=== PATIENT | female | born 1985 | race American Indian/Alaskan Native ===

== ENCOUNTER 2019-07-12 11:08 | Emergency (ER) | payer OTHER, MEDICAID ==
[2019-07-12 11:39] VITALS: BP 173/96
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
[2019-07-12] MEDS ORDERED: IBUPROFEN PO ONE (12:03)
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
== END 2019-07-12 14:32 | disposition home or self-care (01) ==
LOC: ED 11:08
DX: S39.012A Strain of muscle, fascia and tendon of lower back, initial encounter (principal); S16.1XXA Strain of muscle, fascia and tendon at neck level, initial encounter; M94.0 Chondrocostal junction syndrome [Tietze]; E66.01 Morbid (severe) obesity due to excess calories; Z68.1 Body mass index [BMI] 19.9 or less, adult; I10 Essential (primary) hypertension; E11.9 Type 2 diabetes mellitus without complications; F17.200 Nicotine dependence, unspecified, uncomplicated; Z79.899 Other long term (current) drug therapy; Z98.890 Other specified postprocedural states; V89.2XXA Person injured in unspecified motor-vehicle accident, traffic, initial encounter; Y93.89 Activity, other specified; Y92.410 Unspecified street and highway as the place of occurrence of the external cause; Y99.8 Other external cause status
CPT/HCPCS: 71046

== ENCOUNTER 2020-07-23 05:57 | Inpatient (IN) | payer MEDICAID ==
--- NOTE | 2020-07-21 13:39 | History and Physical Report ---
History of Present Illness Date of examination: 07/23/20 Chief complaint: scheduled section History of present illness: Pt is a 34 year old -[place] BETZY 08/06/20 at 38w0d with a h/o chronic hypertension on labetalol 300 mg daily and a h/o one prior who presents for repeat section. She reports good movement, and denies vaginal bleeding or leakage of fluid. She has had care at [facility] since 12 wks complicated by morbid obesity, chronic hypertension, gestational diabetes, depression, abnormal quad screen with increased risk for trisomy 21, cell free DNA normal, genital herpes on suppression, h/o preeclampsia, previous x 1, rubella equivocal status. She is GBS positive. 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 Family/Genetic History: diabetes, heart disease Social history: no significant social history - Obstetrical History Expected Date of Delivery: 08/06/20 Actual Gestation: 37 Week(s) 5 Day(s) : 3 Para: 1 Hx # Term Pregnancies: 1 Number of Pregnancies: 0 Spontaneous Abortions: 1 Induced : 0 Number of Living Children: 1 Medications and Allergies Allergies Allergy/AdvReac Type Severity Reaction Status Date / Time No Known Allergies Allergy Verified 07/12/19 11:09 Home Medications Medication Instructions Recorded Confirmed Last Taken Type Labetalol HCl 2 tab PO BID 10/21/15 10/21/15 Unknown History Labetalol HCl 200 mg PO BID 10/21/15 10/21/15 10/20/15 08:00 History Pnv,Calcium 72/Iron/Folic Acid 1 tab PO DAILY 10/21/15 10/21/15 10/20/15 08:00 History [Pnv Plus Multivit Tab] Ibuprofen [Motrin] 800 mg PO Q8HR PRN #60 tablet 10/23/15 Unknown Rx Oxycodone HCl/Acetaminophen 1 each PO Q6HR PRN #45 tablet 10/23/15 Unknown Rx [Percocet 10/325 mg] labetaloL [Labetalol 200mg TAB] 400 mg PO BID #60 tablet 10/23/15 Unknown Rx Ibuprofen [Motrin 800 MG tab] 800 mg PO Q8HR PRN #20 tablet 07/12/19 Unknown Rx methOCARBAMOL [Robaxin TAB] 500 mg PO BID PRN #15 tab 07/12/19 Unknown Rx Clindamycin [Clindamycin CAP] 300 mg PO Q6HR #80 capsule 10/17/19 Unknown Rx Ibuprofen [Motrin] 800 mg PO Q8HR PRN #30 tablet 10/17/19 Unknown Rx Lidocaine Viscous 2% 10 ml PO Q6H PRN #120 ml 10/17/19 Unknown Rx Ondansetron [Zofran Odt] 4 mg PO Q6HR PRN #20 tab.rapdis 10/17/19 Unknown Rx Prednisone [predniSONE 10 mg 10 mg PO .TAPER #21 tab.ds.pk 10/17/19 Unknown Rx (6-Day Pack, 21 Tabs)] Active Meds: Active Medications Citric Acid/Sodium Citrate (Bicitra) 30 ml PO ONCE ONE Stop: 07/23/20 05:01 Famotidine (Pepcid) 20 mg IV ONCE ONE Stop: 07/23/20 05:01 Lactated Ringer's (Lactated Ringers) 1,000 mls @ 2,250 mls/hr IV PREOP BARRY Stop: 07/24/20 05:27 Oxytocin/Sodium Chloride (Pitocin/Ns 20 Unit/1000ml Drip) 20 units in 1,000 mls @ 0 mls/hr IV DIRECT BARRY Cefazolin Sodium 3 gm/ Sodium (Chloride) 100 mls @ 100 mls/30 min IV PREOP NR; Protocol Metoclopramide HCl (Reglan) 10 mg IV ONCE ONE Stop: 07/23/20 05:01 Review of Systems All systems: negative - Physical Exam Breasts: Positive: deferred Abdomen: Positive: soft (obese, gravid ) Uterus: Positive: enlarged (gravid ) Extremities: Positive: edema (1+) - Obstetrical FHR: auscultation normal Uterine Contraction Monitor Mode: External Uterine Contraction Pattern: Irregular Uterine Tone Measurement Phase: Resting Results All other labs normal. Assessment and Plan A: IUP at 38w0d Chronic Hypertension on Labetalol 300 mg BID Previous x 1 Gestational Diabetes Depression Abnormal quad screen with increased risk of trisomy 21 with normal cell free DNA Genital Herpes without lesion or prodrome H/o preeclampsia Rubella Equivocal Status GBS positive P: Proceed with repeat section and other indicated procedures
[~2020-07-23 05:57] MED LIST: BICITRA ORAL LIQD 30ML PO NR; FAMOTIDINE 20 MG/2 ML INJ IV NR; METOCLOPRAMIDE 10 MG/2 ML INJ IV NR; OXYTOCIN 20 UNIT/1000ML DRIP 20 UNITS/1,000 ML BAG IV SCH
[2020-07-23] MEDS: LACTATED RINGERS 1,000 ML IV SCH ×2 (06:28→07:23)
--- NOTE | 2020-07-23 06:39 | Anesthesia Consultation ---
Anesthesia Consult and Med Hx Date of service: 07/23/20 - Airway Anesthetic Teeth Evaluation: Good ROM Head & Neck: Adequate Mental/Hyoid Distance: Adequate Mallampati Class: Class III Intubation Access Assessment: Possibly Difficult - Pulmonary Exam CTA: Yes - Cardiac Exam Cardiac Exam: RRR - Pre-Operative Health Status ASA Pre-Surgery Classification: ASA3 Proposed Anesthetic Plan: Epidural - Pulmonary Hx Asthma: No COPD: No Hx Pneumonia: No - Cardiovascular System Hx Hypertension: Yes (CHTN @19 Y/O) - Central Nervous System Hx Seizures: No Hx Psychiatric Problems: Yes (DEPRESSION/HALLUCINATIONS) - Endocrine Hx Renal Disease: No Hx End Stage Renal Disease: No Hx Non-Insulin Dependent Diabetes: Yes Hx Hypothyroidism: No Hx Hyperthyroidism: No - Hematic Hx Anemia: No Hx Sickle Cell Disease: No - Other Systems Hx Alcohol Use: No Hx Obesity: Yes (Superobese BMI 59.7)
--- NOTE | 2020-07-23 06:39 | Anesthesia Day of Surgery ---
Anesthesia Day of Surgery - Day of Surgery Patient Examined: Yes Patient H&P Reviewed: Yes Patient is NPO: Yes
[2020-07-23 06:43] LABS: Basophils % (Auto) 0.6 % (0.0-1.8); Eosinophils # (Auto) 0.1 K/mm3 (0.0-0.4); Eosinophils % (Auto) 1.9 % (0.0-4.3); Hemoglobin 11.8 gm/dl (10.1-14.3); Lymphocytes # (Auto) 1.5 K/mm3 (1.2-5.4); Lymphocytes % (Auto) 28.1 % (13.4-35.0); Mean Corpuscular HGB Conc 34 % (30-34); Mean Corpuscular Volume 91 fl (79-97); Monocytes # (Auto) 0.6 K/mm3 (0.0-0.8); Monocytes % (Auto) 10.7 % (0.0-7.3); Platelet Count 328 K/mm3 (140-440); Red Blood Count 3.84 M/mm3 (3.65-5.03); Red Cell Distribution Width 13.7 % (13.2-15.2)
[2020-07-23 07:05] LABS: Glucose,Fasting 100 mg/dL (65-100); Uric Acid 5.7 mg/dL (3.5-7.6)
[2020-07-23] MEDS ORDERED: ceFAZolin/STERILE WATER 2 GM/20 ML SYRINGE IV ONE (07:50)
[2020-07-23] MEDS ORDERED: SODIUM CHLORIDE 0.9% IRR 1,500 ML BOTTLE IR ONE (08:00)
[2020-07-23] MEDS ORDERED: WATER FOR IRRIG STERILE 1,500 ML BOTTLE IR ONE (08:00)
[2020-07-23] MEDS ORDERED: BUPIVACAINE/PF (0.5%) 5 MG/1 ML 30 ML VIAL INFILTRATI ONE (09:01)
[2020-07-23] MEDS ORDERED: DEXMEDETOMIDINE 200 MCG/2 ML VIAL IV ONE (09:01)
[2020-07-23] MEDS ORDERED: ONDANSETRON 4 MG/2 ML INJ ONE (09:01)
[2020-07-23] MEDS ORDERED: KETOROLAC 30 MG/1 ML INJ ONE (09:01)
--- NOTE | 2020-07-23 10:26 | Procedure Note ---
OB Delivery Note - Delivery Date of Delivery: 07/23/20 Surgeon: JASON MATOS Estimated blood loss: other (800 mL) - Section Preop diagnosis: repeat , other (chronic hypertension ) Postop diagnosis: same section procedure: section, repeat low transverse Disposition: PACU Narrative: Please see operative report - A at 1 minute: 8 at 5 minutes: 9 Gender: Female (3691g (8lb 2oz) @ 0926 am)
--- NOTE | 2020-07-23 10:37 | Operative Report ---
Operative Report Operative Report: Date of procedure: July Preoperative diagnosis: 1) IUP at 38w0d 2) Chronic HTN 3) Gestational Diabetes 4) Morbid Obesity BMI 55 5) Previous x 1 Postoperative diagnosis: Same Procedure: Repeat low transverse section, lysis of adhesions Surgeon: Sasha Hernandez M.D. Anesthesia: Regional Findings: 1) Viable female , Apgars 8 and 9, weight 3691 g, (8 lb 2 oz) in cephalic presentation. 2) Dense adhesions of the omentum to the anterior surface of the uterus 2) Normal-appearing uterus ovaries and tubes Estimated blood loss: 800 mL IV fluids:3000 mL Urine output: 75 mL, clear at the end of the procedure Drains: Rios to gravity Specimens: Placenta to pathology Complications:None. Counts correct x 3 Disposition: Stable to PACU Indication for procedure: Pt is a 34 year old at 38 wks with a h/o chronic hypertension, gestational diabetes, morbid obesity and one prior who presents for repeat section. Operation in detail: After the risks, benefits, alternatives and complications were explained to the patient she gave informed consent for the procedure. She was subsequently taken to the operating room where regional anesthesia was noted to be adequate. She was subsequently placed in the dorsal supine position with leftward tilt and prepped and draped in a normal sterile fashion. heart tones were noted prior to incision. A timeout was performed. A Pfannenstiel skin incision was made with the knife and carried down to the layer of the fascia with the Bovie. The fascia was incised in the midline and the fascial incision was extended bilaterally with the Bovie. The fascial incision was then stretched. The rectus muscles were then in the midline and partially transected for adequate visualization. The peritoneum was then entered bluntly. Fifteen minutes were spent in lysis of adhesions using both the Bovie and dissection with Metzenbaum scissors. The peritoneal incision was extended with good visualization of the bladder. The peritoneal incision was then stretched. An Pedro retractor was placed. The bladder blade was then placed. A transverse incision was made in the lower uterine segment with a knife and extended bilaterally with the bandage scissors. Amniotomy was performed with egress of clear fluid. head delivered using a vacuum with little difficulty, followed by shoulders and body. bulb suctioned at delivery. Cord clamped and cut. handed to NICU staff in attendance. Cord blood was collected. The placenta was then delivered manually. The uterus was then cleared of all clots and debris. The hysterotomy was then reapproximated with 0 Vicryl in a running locked fashion. A second layer of the same suture was used in imbricating fashion. The hysterotomy was inspected and hemostasis was noted. The gutters were irrigated and cleared of all clots and debris. The hysterotomy was again inspected and noted to be hemostatic. Surgicel was placed over the hysterotomy. The Pedro retractor was removed. The peritoneum was reapproximated with 2-0 Vicryl in a running fashion incorporating the rectus muscles. Surgicel was placed over the rectus muscles. The fascia was reapproximated with 0 Vicryl in a running fashion. The subcutaneous tissue was reapproximated with 0 Vicryl in a running fashion. The skin was reapproximated with 4-0 Vicryl in a subcuticular fashion. The incision was then covered with steri strips and a pressure dressing. The procedure was then ended. The patient tolerated the procedure well and was taken to the PACU in stable condition. All instrument, lap, and needle counts were correct 3.
[2020-07-23] MEDS ORDERED: LIDOCAINE 2%/EPINEPHRINE 1:200,000 VIAL (20 ML) INFILTRATI ONE (10:40)
[2020-07-23] MEDS ORDERED: PHENYLEPHRINE/NS 1,000 MCG/10 ML SYRINGE (OR USE) IV ONE (10:40)
[2020-07-23] MEDS ORDERED: SODIUM BICARB 8.4% 50 MEQ/50 ML VIAL IV ONE (10:40)
[2020-07-23] MEDS ORDERED: LIDOCAINE PF 100 MG/5 ML (CARDIAC SYRINGE) IV ONE (10:40)
--- NOTE | 2020-07-23 11:14 | Post Anesthesia Evaluation ---
- Post Anesthesia Evaluation Patient Participated: Yes Airway Patent: Yes Stable Respiratory Function: Yes Nausea/Vomiting: No Temp > 96.8F: Yes Pain Manageable: Yes Adequeate Hydration: Yes Anesthesia Complications: No Block Receding Appropriately: Yes
--- NOTE | 2020-07-23 11:35 | Progress Note ---
Regional Anesthesia Block - Regional Anesthesia Block Start Time: 11:30 Stop Time: 11:35 Performed By:: SANTANA CONCEPCION Procedure: U/S guided bilateral tap block performed for post-operative pain requested by Dr. Hernandez. H&P & labs reviewed. Procedure explained, questions answered, consent obtained. Patient in the supine position with ekg, blood pressure cuff and pulse ox on and working in PACU. Timeout performed immediately before start of procedure. Probe placed in the mid-axillary line and the external oblique, internal oblique, and transverse abdominus muscles identified. Skin was cleansed with 0.5% Chlorahexadine and allowed to dry. A 4" 20 G Berrios echogenic needle was advanced in plane until the tip was in the fascial plane between the internal oblique and the transverse abdominus. After negative aspiration 35 ml/side of [30 ml 0.5% Bupivacaine], [50 mcg dexmedetomidine], [8 mg dexamethasone], and [40 ml sterile saline] was injected in 5 ml increments with negative aspiration in between. Patient tolerated procedure well. Rohini ALONSO
[2020-07-23] MEDS ORDERED: WITCH HAZEL/ GLYCERIN PAD TP PRN (12:34)
[2020-07-23] MEDS ORDERED: MAGNESIUM HYDROXIDE (MOM) ORAL LIQD UDC PO PRN (12:34)
[2020-07-23] MEDS ORDERED: OXYTOCIN 20 UNIT/1000ML DRIP 20 UNITS/1,000 ML BAG IV SCH (12:34)
[2020-07-23] MEDS ORDERED: NALOXONE 0.4 MG/1 ML INJ IV PRN (12:34)
[2020-07-23] MEDS ORDERED: ONDANSETRON 4 MG/2 ML INJ IV PRN (12:34)
[2020-07-23] MEDS ORDERED: LACTATED RINGERS 1,000 ML IV SCH (12:34)
[2020-07-23] MEDS ORDERED: LANOLIN/ZINC/DIMETHICONE (LANSINOH) 7 GM TP PRN (12:34)
[2020-07-23] MEDS: KETOROLAC 30 MG/1 ML INJ IV SCH ×2 (16:14→21:07)
[2020-07-23] MEDS: ceFAZolin/NS 1 GM/50 ML 1 GM/50 ML BAG IV SCH (16:14)
[2020-07-24 00:25] LABS: Hematocrit 29.7 % (30.3-42.9); Hemoglobin 9.9 gm/dl (10.1-14.3)
[2020-07-24] MEDS: KETOROLAC 30 MG/1 ML INJ IV SCH (03:02)
[2020-07-24] MEDS: ceFAZolin/NS 1 GM/50 ML 1 GM/50 ML BAG IV SCH (03:04)
[2020-07-24] MEDS: SIMETHICONE 80 MG CHEW TAB PO PRN ×2 (05:13→16:45)
[2020-07-24] MEDS: oxyCODONE /ACETAMINOPHEN 5-325MG TAB PO PRN ×2 (08:07→13:04)
--- NOTE | 2020-07-24 08:10 | Progress Note ---
Assessment and Plan - Patient Problems (1) delivery delivered Current Visit: Yes Status: Acute Plan to address problem: Improve pain management (2) Morbid obesity Current Visit: No Status: Acute Subjective - Subjective Date of service: 07/24/20 Interval history: Patient reports that her pain is not well controlled. She reports having positive flatus and tolerating her clear diet. She has voided since removal of her Rios. Patient reports: appetite normal, voiding normally, pain poorly controlled [place]: doing well Objective - Vital Signs Latest vital signs: Vital Signs Temp Pulse Resp BP BP Pulse Ox 07/24/20 03:32 18 07/24/20 03:02 18 07/24/20 00:30 98.6 F 71 18 121/78 07/23/20 21:37 18 07/23/20 20:18 98.6 F 94 H 18 161/79 96 07/23/20 18:01 98.2 F 79 20 149/75 96 07/23/20 12:17 97.7 F 70 18 123/60 99 07/23/20 11:50 75 20 99 07/23/20 11:35 70 19 101/40 99 07/23/20 11:20 67 24 110/49 98 07/23/20 11:05 97.9 F 69 23 104/39 98 07/23/20 10:51 73 15 99/28 99 07/23/20 10:45 70 15 109/37 99 07/23/20 10:41 71 18 117/31 100 07/23/20 10:36 97.6 F 77 11 L 108/50 99 Intake and Output 07/23/20 07/24/20 07/24/20 22:59 06:59 14:59 Intake Total 650 500 Output Total 300 1400 Balance 350 -900 Intake: IV 50 ANCEF/NS 1 GM/50 ML 1 gm 50 In 50 ml @ 100 mls/hr IV Q8H REPLACED BY [facility] Rx#:[id number] Oral 360 200 Intake, Free Water 240 300 Output: Urine 300 1400 Indwelling Catheter 300 400 Void 1000 Other: Total, Intake Amount 360 200 Total, Output Amount 300 400 # Voids Void 1 - Exam Abdomen: Present: normal appearance Incision: Present: dressed - Labs Labs: Abnormal lab results 07/23/20 Range/Units 23:02 Hgb 9.9 L (10.1-14.3) gm/dl Hct 29.7 L (30.3-42.9) %
[2020-07-24] MEDS ORDERED: DIPHtheria,PERTUSSIS(ACELL),TETANUS VACCINE/PF 0.5 ML VIAL IM ONE (10:39)
[2020-07-24] MEDS ORDERED: MEASLES, MUMPS & RUBELLA 12,500 UNIT/0.5 ML VACCINE SUB-Q ONE ×2 (10:39→17:22)
[2020-07-24] MEDS: IBUPROFEN 800 MG TAB PO PRN ×2 (16:35→21:54)
[2020-07-25] MEDS: oxyCODONE /ACETAMINOPHEN 5-325MG TAB PO PRN ×2 (04:53→13:31)
[2020-07-25] MEDS: SIMETHICONE 80 MG CHEW TAB PO PRN ×2 (04:53→11:38)
--- NOTE | 2020-07-25 10:59 | Progress Note ---
Assessment and Plan - Patient Problems (1) delivery delivered Current Visit: Yes Status: Acute Plan to address problem: Patient demonstrating clinical improvement Discharge home (2) Morbid obesity Current Visit: No Status: Acute Subjective - Subjective Date of service: 07/25/20 Interval history: Patient reports improvement in her pain management. Is tolerating regular diet without complication and has been able to void without difficulty. Patient reports: appetite normal, voiding normally, pain well controlled : doing well Objective - Vital Signs Latest vital signs: Vital Signs Temp Pulse Resp BP BP Pulse Ox 07/25/20 08:33 98.0 F 17 143/63 07/25/20 04:00 98.6 F 78 18 139/74 07/25/20 01:36 98.0 F 86 18 150/70 96 07/24/20 19:30 98.6 F 74 16 151/77 07/24/20 16:12 98.1 F 87 24 151/82 96 07/24/20 15:35 76 142/81 07/24/20 11:54 98.8 F 85 20 156/85 97 Intake and Output 07/24/20 07/25/20 07/25/20 22:59 06:59 14:59 Intake Total 360 200 Balance 360 200 Intake: Oral 360 200 Other: Total, Intake Amount 360 200 # Voids Void 1 1 - Exam Abdomen: Present: normal appearance Incision: Present: normal
--- NOTE | 2020-07-25 11:01 | Discharge Summary ---
Providers - Providers Date of Admission: 07/23/20 05:57 Date of discharge: 07/25/20 Attending physician: JAMILAH YUNG Primary care physician: JAMILAH YUNG Hospitalization Reason for admission: section Delivery: Procedure: section, repeat low transverse Discharge diagnosis: IUP at term delivered Hospital course: Patient admitted for scheduled repeat delivery. Please see operative note for details of surgery. Postoperative course was uneventful. Condition at discharge: Good Disposition: DC-01 TO HOME OR SELFCARE - Discharge Diagnoses (1) delivery delivered Status: Acute (2) Morbid obesity Status: Acute Plan - Discharge Medications Prescriptions: Ibuprofen [Motrin] 800 mg PO Q8HR PRN #60 tablet PRN Reason: Pain , Severe (7-10) oxyCODONE /ACETAMINOPHEN [Percocet 5/325] 1 tab PO Q6HR PRN #30 tablet PRN Reason: Pain - Provider Discharge Summary Activity: no sex for 6 weeks, no heavy lifting 4 weeks, no strenuous exercise Diet: routine Instructions: routine Additional instructions: [] Smoking cessation referral if applicable(refer to patient education folder for contact #) [] Refer to [facility]'s [facility] Booklet Call your doctor immediately for: * Fever > 100.5 * Heavy vaginal bleeding ( >1 pad per hour) * Severe persistent headache * Shortness of breath * Reddened, hot, painful area to leg or breast * Drainage or odor from incision. * Keep incision clean and dry at all times and follow doctor's instructions regarding bathing/showering Schedule postop visit in 2 weeks - Follow up plan
[2020-07-25] MEDS: IBUPROFEN 800 MG TAB PO PRN (11:34)
[2020-07-25 15:19] VITALS: BP 168/38
== END 2020-07-25 15:15 | disposition home or self-care (01) | DRG 765 ==
LOC: APU 05:57 → OB 12:20
PROVIDERS: ADMIT Obstetrics & Gynecology; ATTEND Obstetrics & Gynecology
PROC: 10D00Z1 Extraction of Products of Conception, Low, Open Approach (ICD-10-PCS; principal; 2020-07-23)
PROC: 0DNU0ZZ Release Omentum, Open Approach (ICD-10-PCS; 2020-07-23)
PROC: 3E0234Z Introduction of Serum, Toxoid and Vaccine into Muscle, Percutaneous Approach (ICD-10-PCS; 2020-07-24)
DX: O34.211 Maternal care for low transverse scar from previous cesarean delivery (principal); O10.02 Pre-existing essential hypertension complicating childbirth; O98.32 Other infections with a predominantly sexual mode of transmission complicating childbirth; O99.824 Streptococcus B carrier state complicating childbirth; O24.429 Gestational diabetes mellitus in childbirth, unspecified control; A60.00 Herpesviral infection of urogenital system, unspecified; Z37.0 Single live birth; O99.344 Other mental disorders complicating childbirth; O99.214 Obesity complicating childbirth; F32.9 Major depressive disorder, single episode, unspecified; E66.01 Morbid (severe) obesity due to excess calories; O11.4 Pre-existing hypertension with pre-eclampsia, complicating childbirth; Z20.828 Contact with and (suspected) exposure to other viral communicable diseases; Z23 Encounter for immunization; Z3A.38 38 weeks gestation of pregnancy
CPT/HCPCS: 36415; 82565; 82947; 83615; 84450; 84550; 85014; 85018; 85025; 86592; 86762; 86850; 86900; 86901; 88307; 90707; G0378; C1765; J0690; J1885; J2001; J2370; J2405; J2590; J2765; J3490; J7120; U0003-CS

== ENCOUNTER 2020-11-20 01:04 | Emergency (ER) | payer MEDICAID ==
[2020-11-20 01:48] LABS: Basophils # (Auto) 0.1 K/mm3 (0.0-0.1); Basophils % (Auto) 0.8 % (0.0-1.8); Eosinophils # (Auto) 0.3 K/mm3 (0.0-0.4); Eosinophils % (Auto) 4.4 % (0.0-4.3); Hematocrit 39.1 % (30.3-42.9); Hemoglobin 12.8 gm/dl (10.1-14.3); Lymphocytes # (Auto) 1.5 K/mm3 (1.2-5.4); Lymphocytes % (Auto) 25.2 % (13.4-35.0); Mean Corpuscular HGB Conc 33 % (30-34); Mean Corpuscular Volume 83 fl (79-97); Monocytes # (Auto) 0.4 K/mm3 (0.0-0.8); Monocytes % (Auto) 6.3 % (0.0-7.3); Platelet Count 364 K/mm3 (140-440); Red Blood Count 4.73 M/mm3 (3.65-5.03); Red Cell Distribution Width 15.8 % (13.2-15.2)
[2020-11-20 02:10] LABS: Alanine Aminotransferase 13 units/L (7-56); Albumin 4.4 g/dL (3.9-5); Blood Urea Nitrogen 9 mg/dL (7-17); Calcium 9.4 mg/dL (8.4-10.2); Hemolysis Index 11
[2020-11-20 02:17] LABS: BUN/Creatinine Ratio 15
[2020-11-20] MEDS ORDERED: ONDANSETRON 4 MG/2 ML INJ IV ONE (02:17)
[2020-11-20] MEDS ORDERED: LIDOCAINE VISCOUS 2% 15 ML ORAL LIQD PO ONE (02:17)
[2020-11-20] MEDS ORDERED: SODIUM CHLORIDE 0.9% 1000 ML 1,000 ML IV ONE (02:17)
[2020-11-20] MEDS ORDERED: ALUM-MAG HYDROXIDE-SIMETHICONE 200-200-20MG/5ML ORAL LIQD 30 ML PO ONE (02:17)
[2020-11-20] MEDS ORDERED: KETOROLAC 30 MG/1 ML INJ IV ONE (02:17)
--- NOTE | 2020-11-20 03:24 | Emergency Department Report ---
ED Abdominal Pain HPI - General Chief Complaint: Abdominal Pain Stated Complaint: STOMACH PAIN Time Seen by Provider: 11/20/20 02:07 Source: patient Mode of arrival: Ambulatory Limitations: No Limitations - History of Present Illness Initial Comments: Patient is a 35-year-old -[place]ine[place] female with history of obesity and hypertension. Patient presents tonight for left upper quadrant pain radiating to epigastric region for the past 2 days. Patient states intermittent nausea vomiting , there is been no fever, chills, pain described as 4/10 burning , pain is relieved by nothing tried. Pain is exacerbated by p.o. intake. Patient currently taking labetalol for BP control however she has had not had a dose in 3 days. Severity scale (0 -10): 10 - Related Data Home Medications Medication Instructions Recorded Confirmed Last Taken Aspirin [Adult Aspirin] 1 tab PO DAILY 07/23/20 07/23/20 1 Day Ago ~07/22/20 Labetalol HCl [Labetalol 300mg TAB] 2 tab PO BID 07/23/20 07/23/20 1 Day Ago ~07/22/20 Vit-Fe Fumar-FA [ 1 tab PO DAILY 07/23/20 07/23/20 1 Day Ago Vitamin] ~07/22/20 Previous Rx's Medication Instructions Recorded Last Taken Type Ibuprofen [Motrin] 800 mg PO Q8HR PRN #60 tablet 07/25/20 Unknown Rx oxyCODONE /ACETAMINOPHEN [Percocet 1 tab PO Q6HR PRN #30 tablet 07/25/20 Unknown Rx 5/325] Famotidine [Pepcid] 20 mg PO BID #30 tablet 11/20/20 Unknown Rx Naproxen 500 mg PO BID PRN #30 tablet 11/20/20 Unknown Rx Ondansetron [Zofran Odt] 4 mg PO Q8HR PRN #12 tab.rapdis 11/20/20 Unknown Rx labetaloL [Labetalol 100mg TAB] 200 mg PO BID #60 tablet 11/20/20 Unknown Rx Allergies Allergy/AdvReac Type Severity Reaction Status Date / Time No Known Allergies Allergy Verified 07/12/19 11:09 ED Review of Systems ROS: Stated complaint: STOMACH PAIN Other details as noted in HPI Constitutional: malaise. denies: chills, fever Eyes: denies: eye pain, eye discharge, vision change ENT: denies: ear pain, throat pain Respiratory: denies: cough, shortness of breath, wheezing Cardiovascular: denies: chest pain, palpitations Endocrine: no symptoms reported Gastrointestinal: abdominal pain, nausea, vomiting. denies: diarrhea, constipation Genitourinary: denies: urgency, dysuria, discharge Musculoskeletal: denies: back pain, joint swelling, arthralgia Skin: denies: rash, lesions Neurological: denies: headache, weakness, paresthesias Psychiatric: denies: anxiety, depression Hematological/Lymphatic: denies: easy bleeding, easy bruising ED Past Medical Hx - Past Medical History Previous Medical History?: Yes Hx Hypertension: Yes Hx Congestive Heart Failure: No Hx Diabetes: No Hx Deep Vein Thrombosis: No Hx Renal Disease: No Hx Sickle Cell Disease: No Hx Seizures: No Hx Asthma: No Hx COPD: No Hx HIV: No Additional medical history: Morbid Obesity - Surgical History Past Surgical History?: Yes Additional Surgical History: C SECTION - Social History Smoking Status: Current Every Day Smoker Substance Use Type: None - Medications Home Medications: Home Medications Medication Instructions Recorded Confirmed Last Taken Type Aspirin [Adult Aspirin] 1 tab PO DAILY 07/23/20 07/23/20 1 Day Ago History ~07/22/20 Labetalol HCl [Labetalol 300mg TAB] 2 tab PO BID 07/23/20 07/23/20 1 Day Ago History ~07/22/20 Vit-Fe Fumar-FA [ 1 tab PO DAILY 07/23/20 07/23/20 1 Day Ago History Vitamin] ~07/22/20 Ibuprofen [Motrin] 800 mg PO Q8HR PRN #60 tablet 07/25/20 Unknown Rx oxyCODONE /ACETAMINOPHEN [Percocet 1 tab PO Q6HR PRN #30 tablet 07/25/20 Unknown Rx 5/325] Famotidine [Pepcid] 20 mg PO BID #30 tablet 11/20/20 Unknown Rx Naproxen 500 mg PO BID PRN #30 tablet 11/20/20 Unknown Rx Ondansetron [Zofran Odt] 4 mg PO Q8HR PRN #12 tab.rapdis 11/20/20 Unknown Rx labetaloL [Labetalol 100mg TAB] 200 mg PO BID #60 tablet 11/20/20 Unknown Rx ED Physical Exam - General Limitations: No Limitations General appearance: alert, in no apparent distress - Head Head exam: Present: atraumatic, normocephalic - Eye Eye exam: Present: normal appearance, EOMI Pupils: Present: normal accommodation - ENT ENT exam: Present: mucous membranes moist - Neck Neck exam: Present: normal inspection, full ROM. Absent: tenderness - Respiratory Respiratory exam: Present: normal lung sounds bilaterally. Absent: respiratory distress, wheezes, stridor, chest wall tenderness - Cardiovascular Cardiovascular Exam: Present: regular rate, normal rhythm, normal heart sounds. Absent: systolic murmur, diastolic murmur, rubs, gallop - GI/Abdominal GI/Abdominal exam: Present: soft, normal bowel sounds. Absent: distended, tenderness, guarding, rebound, rigid, bruit, hernia - Rectal Rectal exam: Present: deferred - Extremities Exam Extremities exam: Present: normal inspection, full ROM. Absent: tenderness, pedal edema - Back Exam Back exam: Present: normal inspection, full ROM. Absent: tenderness, CVA tenderness (R), CVA tenderness (L) - Neurological Exam Neurological exam: Present: alert, oriented X3, CN II-XII intact, normal gait - Psychiatric Psychiatric exam: Present: normal affect - Skin Skin exam: Present: warm, dry, intact, normal color. Absent: rash ED Course Vital Signs 11/20/20 11/20/20 01:33 02:38 Temperature 98.2 F Pulse Rate 94 H Respiratory 18 20 Rate Blood Pressure 198/111 Blood Pressure 216/120 [Left] O2 Sat by Pulse 98 Oximetry ED Medical Decision Making - Lab Data Result diagrams: 11/20/20 01:36 11/20/20 01:36 Labs 11/20/20 11/20/20 11/20/20 01:36 01:36 01:36 WBC 6.0 RBC 4.73 Hgb 12.8 Hct 39.1 MCV 83 MCH 27 L MCHC 33 RDW 15.8 H Plt Count 364 Lymph % (Auto) 25.2 Cameron % (Auto) 6.3 Eos % (Auto) 4.4 H Baso % (Auto) 0.8 Lymph # (Auto) 1.5 Cameron # (Auto) 0.4 Eos # (Auto) 0.3 Baso # (Auto) 0.1 Seg Neutrophils % 63.3 Seg Neutrophils # 3.8 Sodium 136 L Potassium 3.9 Chloride 99.1 Carbon Dioxide 29 Anion Gap 12 BUN 9 Creatinine 0.6 Estimated GFR > 60 BUN/Creatinine Ratio 15 Glucose 151 H Calcium 9.4 Total Bilirubin 0.30 AST 12 ALT 13 Alkaline Phosphatase 82 Total Protein 7.9 Albumin 4.4 Albumin/Globulin Ratio 1.3 Lipase 24 HCG, Qual Negative Labs 11/20/20 11/20/20 11/20/20 01:36 01:36 01:36 WBC 6.0 RBC 4.73 Hgb 12.8 Hct 39.1 MCV 83 MCH 27 L MCHC 33 RDW 15.8 H Plt Count 364 Lymph % (Auto) 25.2 Cameron % (Auto) 6.3 Eos % (Auto) 4.4 H Baso % (Auto) 0.8 Lymph # (Auto) 1.5 Cameron # (Auto) 0.4 Eos # (Auto) 0.3 Baso # (Auto) 0.1 Seg Neutrophils % 63.3 Seg Neutrophils # 3.8 Sodium 136 L Potassium 3.9 Chloride 99.1 Carbon Dioxide 29 Anion Gap 12 BUN 9 Creatinine 0.6 Estimated GFR > 60 BUN/Creatinine Ratio 15 Glucose 151 H Calcium 9.4 Total Bilirubin 0.30 AST 12 ALT 13 Alkaline Phosphatase 82 Total Protein 7.9 Albumin 4.4 Albumin/Globulin Ratio 1.3 Lipase 24 HCG, Qual Negative Urine Color Urine Turbidity Urine pH Ur Specific [place] Urine Protein Urine Glucose (UA) Urine Ketones Urine Blood Urine Nitrite Urine Bilirubin Urine Urobilinogen Ur Leukocyte Esterase Urine WBC (Auto) Urine RBC (Auto) U Epithel Cells (Auto) 11/20/20 02:14 WBC RBC Hgb Hct MCV MCH MCHC RDW Plt Count Lymph % (Auto) Cameron % (Auto) Eos % (Auto) Baso % (Auto) Lymph # (Auto) Cameron # (Auto) Eos # (Auto) Baso # (Auto) Seg Neutrophils % Seg Neutrophils # Sodium Potassium Chloride Carbon Dioxide Anion Gap BUN Creatinine Estimated GFR BUN/Creatinine Ratio Glucose Calcium Total Bilirubin AST ALT Alkaline Phosphatase Total Protein Albumin Albumin/Globulin Ratio Lipase HCG, Qual Urine Color Yellow Urine Turbidity Clear Urine pH 6.0 Ur Specific [place] 1.014 Urine Protein 100 mg/dl Urine Glucose (UA) Neg Urine Ketones Neg Urine Blood Sm Urine Nitrite Neg Urine Bilirubin Neg Urine Urobilinogen < 2.0 Ur Leukocyte Esterase Neg Urine WBC (Auto) 4.0 Urine RBC (Auto) 1.0 U Epithel Cells (Auto) 5.0 - Medical Decision Making Nausea vomiting is resolved, patient is tolerating p.o. intake without symptoms, BP is improved. There is no abdominal pain at this time. Labs noted normal. Plan DC to home with prescriptions, continue to hydrate as directed. Patient will follow-up PCP in 2 to 3 days. Patient verbalizes agreement and understanding with discharge plan. Patient DC'd home in stable condition at this time. Critical care attestation.: If time is entered above; I have spent that time in minutes in the direct care of this critically ill patient, excluding procedure time. ED Disposition Clinical Impression: Nausea and vomiting Qualifiers: Vomiting type: unspecified Vomiting Intractability: non-intractable Qualified Code(s): R11.2 - Nausea with vomiting, unspecified Disposition: DC-01 TO HOME OR SELFCARE Is pt being admited?: No Does the pt Need Aspirin: No Condition: Stable Instructions: Abdominal Pain (ED), Nausea and Vomiting, Adult, [id number] Additional Instructions: hydate as directed, return to emergency if unable to tolerate po intake Prescriptions: labetaloL [Labetalol 100mg TAB] 200 mg PO BID #60 tablet Naproxen 500 mg PO BID PRN #30 tablet PRN Reason: pain Famotidine [Pepcid] 20 mg PO BID #30 tablet Ondansetron [Zofran Odt] 4 mg PO Q8HR PRN #12 tab.rapdis PRN Reason: Nausea Referrals: KELLY AYOUB MD [Staff Physician] - 3-5 Days Time of Disposition: 04:50
[2020-11-20 03:44] LABS: Bilirubin,Urine NEG (Negative); Blood,Urine SM (Negative); Color,Urine Yellow (Yellow); Urobilinogen,Urine < 2.0 mg/dL (<2.0)
[2020-11-20 05:09] VITALS: BP 181/87
== END 2020-11-20 05:05 | disposition home or self-care (01) ==
LOC: ED 01:04
DX: R11.2 Nausea with vomiting, unspecified (principal); I10 Essential (primary) hypertension; F17.200 Nicotine dependence, unspecified, uncomplicated; Z79.82 Long term (current) use of aspirin; Z79.899 Other long term (current) drug therapy
CPT/HCPCS: 36415; 80053; 81001; 83690; 84703; 85025; 96361; 96374; 96375; 99283; J1885; J2405; J7030

== ENCOUNTER 2021-12-02 14:17 | Inpatient (IN) | payer MEDICAID ==
[2021-12-02] MEDS ORDERED: LACTATED RINGERS 1,000 ML IV ONE (14:57)
[2021-12-02 15:37] LABS: Hematocrit 36.4 % (30.3-42.9); Hemoglobin 11.8 gm/dl (10.1-14.3); Mean Corpuscular HGB Conc 33 % (30-34); Mean Corpuscular Volume 89 fl (79-97); Platelet Count 261 K/mm3 (140-440); Red Cell Distribution Width 14.6 % (13.2-15.2)
[2021-12-02 15:47] LABS: Bacteria,Urine 3+ /HPF (Negative); Bilirubin,Urine NEG (Negative); Blood,Urine NEG (Negative); Color,Urine Amber (Yellow); Mucus,Urine FEW /HPF
[2021-12-02 15:59] LABS: Alanine Aminotransferase 10 units/L (7-56); Uric Acid 4.1 mg/dL (3.5-7.6)
[2021-12-02] MEDS: BETAMET ACET/BETAMET NA PH 6 MG/ML INJ 5 ML MDV IM SCH (16:35)
[2021-12-02] MEDS ORDERED: ONDANSETRON 4 MG/2 ML INJ IV PRN (16:56)
[2021-12-02] MEDS ORDERED: DOCUSATE SODIUM 100 MG CAP PO PRN (16:56)
[2021-12-02] MEDS ORDERED: SODIUM CHLORIDE NASAL SPRAY 44ML NS PRN (16:56)
[2021-12-02] MEDS ORDERED: ACETAMINOPHEN 325 MG TAB PO PRN (16:56)
[2021-12-02] MEDS ORDERED: SIMETHICONE 80 MG CHEW TAB PO PRN (16:56)
[2021-12-02] MEDS ORDERED: LACTATED RINGERS 1,000 ML IV SCH (17:00)
[2021-12-02] MEDS ORDERED: hydrALAZINE 20 MG/1 ML INJ IV PRN (17:04)
[2021-12-02] MEDS ORDERED: CALCIUM GLUCONATE 1000 MG/10 ML INJ IV SCH (17:04)
[2021-12-02] MEDS ORDERED: MAGNESIUM SULFATE 4 GM/100 ML BAG IV ONE (18:04)
[2021-12-02] MEDS: MAGNESIUM SULFATE 40GM/1000ML 40 GM/1,000 ML BAG IV SCH (18:05)
--- NOTE | 2021-12-03 08:39 | History and Physical Report ---
History of Present Illness Date of examination: 12/03/21 Date of admission: 12/02/21 16:57 Chief complaint: my blood pressure was high in the office History of present illness: Pt is a 36 year old -[place] female BETZY 01/27/22 by 32w1d who presented on 12/02/21 after clinic visit where BP was noted to be 180-190s/80s-100. She reports mild headache not requiring Tylenol, and denies blurred vision, RUQ pain or scotomata. She has had care at [facility] with comanagement by [facility] since 11 wks complicated by chronic hypertension on Labetalol 400 mg BID, morbid obesity BMI 57, gestational diabetes with no access to glucometer for the past month, two prior sections, edema of the pannus, depression on no meds, h/o preeclampsia in prior , genital herpes without lesion or prodrome, numbness and tingling in hands s/p Neurology referral, polyhydramnios, positive Quad screen for Down Syndrome. She is GBS positive. On admission, pt had severe range blood pressures. She was admitted for observation, started on magnesium sulfate for seizure prophylaxis, her labetalol was increased to 600 mg twice daily with PRN hydralazine, and betamethasone course was initiated. 24 hour urine initiated. 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 ) Family/Genetic History: diabetes, heart disease Social history: no significant social history - Obstetrical History Expected Date of Delivery: 01/27/22 Actual Gestation: 32 Week(s) 1 Day(s) : 4 Para: 2 Hx # Term Pregnancies: 2 Number of Pregnancies: 0 Spontaneous Abortions: 1 Induced : 0 Number of Living Children: 2 Medications and Allergies Allergies Allergy/AdvReac Type Severity Reaction Status Date / Time No Known Allergies Allergy Verified 07/12/19 11:09 Home Medications Medication Instructions Recorded Confirmed Last Taken Type Aspirin [Adult Aspirin] 1 tab PO DAILY 07/23/20 07/23/20 1 Day Ago History ~07/22/20 Labetalol HCl [Labetalol 300mg TAB] 2 tab PO BID 07/23/20 07/23/20 1 Day Ago History ~07/22/20 Vit-Fe Fumar-FA [ 1 tab PO DAILY 07/23/20 07/23/20 1 Day Ago History Vitamin] ~07/22/20 Ibuprofen [Motrin] 800 mg PO Q8HR PRN #60 tablet 07/25/20 Unknown Rx oxyCODONE /ACETAMINOPHEN [Percocet 1 tab PO Q6HR PRN #30 tablet 07/25/20 Unknown Rx 5/325] Famotidine [Pepcid] 20 mg PO BID #30 tablet 11/20/20 Unknown Rx Naproxen 500 mg PO BID PRN #30 tablet 11/20/20 Unknown Rx Ondansetron [Zofran Odt] 4 mg PO Q8HR PRN #12 tab.rapdis 11/20/20 Unknown Rx labetaloL [Labetalol 100mg TAB] 200 mg PO BID #60 tablet 11/20/20 Unknown Rx Active Meds: Active Medications Acetaminophen (Acetaminophen 325 Mg Tab) 650 mg PO Q4H PRN PRN Reason: Pain MILD(1-3)/Fever >100.5/GOLDEN Betamethasone Acet/Betameth SodPhos (Betamet Acet/Betamet Na Ph 6 Mg/Ml Inj 5 Ml Mdv) 12 mg IM Q24HR [facility] Stop: 12/03/21 10:01 Last Admin: 12/02/21 16:35 Dose: 12 mg Calcium Gluconate (Calcium Gluconate 1000 Mg/10 Ml Inj) 1,000 mg IV ONCE BARRY Docusate Sodium (Docusate Sodium 100 Mg Cap) 100 mg PO Q12H PRN PRN Reason: Constipation Hydralazine HCl (Hydralazine 20 Mg/1 Ml Inj) 5 mg IV Q30MIN PRN PRN Reason: Hypertension Lactated Ringer's (Lactated Ringers) 1,000 mls @ 125 mls/hr IV DIRECT BARRY Magnesium Sulfate (Magnesium Sulfate 40gm/1000ml) 40 gm in 1,000 mls @ 50 mls/hr IV DIRECT BARRY Last Admin: 12/02/21 18:05 Dose: 2 gm/hr, 50 mls/hr Labetalol HCl (Labetalol 200 Mg Tab) 600 mg PO 0700,1900 [facility] Last Admin: 12/03/21 06:55 Dose: 600 mg Multivitamins/Iron/Calcium ( [id number]-[id number] Fumarate-Folic Acid Vit Tab) 1 each PO QDAY BARRY Ondansetron HCl (Ondansetron 4 Mg/2 Ml Inj) 4 mg IV Q6H PRN PRN Reason: Nausea And Vomiting Simethicone (Simethicone 80 Mg Chew Tab) 80 mg PO Q6H PRN PRN Reason: Gas pain Sodium Chloride (Sodium Chloride Nasal [place] 44ml) 2 spray NS Q4H PRN PRN Reason: Congestion Review of Systems All systems: negative - Vital Signs Vital signs: Vital Signs Pulse BP 86 205/91 12/02/21 14:54 12/02/21 14:54 Temp Pulse Resp BP Pulse Ox 98.4 F 82 18 159/78 97 12/03/21 07:24 12/03/21 08:29 12/03/21 07:24 12/03/21 08:28 12/03/21 08:29 - Physical Exam Breasts: Positive: deferred Abdomen: Positive: soft (obese, gravid ), other (edema of pannus ) Uterus: Positive: enlarged (gravid ) Extremities: Positive: edema - Obstetrical FHR: auscultation normal Uterine Contraction Monitor Mode: External Uterine Contraction Pattern: Absent Uterine Tone Measurement Phase: Resting Results Result Diagrams: 12/02/21 15:25 12/02/21 15:25 Abnormal lab results 12/02/21 12/02/21 12/03/21 Range/Units 15:00 15:25 08:09 Creatinine 0.5 L (0.6-1.2) mg/dL POC Glucose 125 H (70-105) mg/dL U Epithel Cells (Auto) 17.0 H (0-13.0) /HPF All other labs normal. Assessment and Plan A: IUP at 32w1d; BPP done 12/02/21 at [facility] office, report not yet available Elevated blood pressure Chronic hypertension on Labetalol 600 mg BID Morbid obesity BMI 57 Gestational diabetes with no access to glucometer for the past month Two prior sections Edema of the pannus Depression on no meds h/o preeclampsia in prior Genital herpes without lesion or prodrome Numbness and tingling in hands s/p Neurology referral Polyhydramnios Positive Quad screen for Down Syndrome GBS positive P: Admit to antepartum service Clear liquid diet with accucheks q 4 hours Labetalol increased to 600 mg BID MFM consult 24 hour urine collection Magnesium sulfate for seizure prophylaxis Betamethasone course initiated Closely monitor clinical status
[2021-12-03] MEDS ORDERED: valACYclovir 500 MG TAB PO SCH (09:00)
[2021-12-03] MEDS ORDERED: BETAMET ACET/BETAMET NA PH 6 MG/ML INJ 5 ML MDV IM SCH (10:00)
[2021-12-03] MEDS: PRENATAL VIT27-FE FUMARATE-FOLIC ACID VIT TAB PO SCH (16:39)
[2021-12-03] MEDS ORDERED: BETAMET ACET/BETAMET NA PH 6 MG/ML INJ 5 ML MDV IM ONE (17:00)
[2021-12-03] MEDS ORDERED: DEXTROSE 50% IN WATER (25GM) 50 ML SYRINGE IV PRN (17:04)
[2021-12-03] MEDS ORDERED: INSULIN REGULAR, HUMAN 100 UNITS/1 ML SUB-Q PRN (17:04)
[2021-12-03] MEDS ORDERED: DEXTROSE 10% *Hypoglycemia IV PRN (17:24)
[2021-12-03] MEDS: BETAMET ACET/BETAMET NA PH 6 MG/ML INJ 5 ML MDV IM SCH (17:25)
[2021-12-03] MEDS: MAGNESIUM SULFATE 40GM/1000ML 40 GM/1,000 ML BAG IV SCH (17:35)
--- NOTE | 2021-12-03 18:43 | Consultation ---
History of Present Illness Consult date: 12/03/21 Requesting physician: JASON MATOS Reason for consult: pelvic infection History of present illness: HPI Ms. Clinton is a 36 y/o EGA 01/27/22 EGA now 32 2/7 weeks sent in from OB's office with elevated BP's noted 180-190/80-100 Known H/O CHTN and GDM and h/o Preeclampsia X 2 Followed by [facility] for MO CHTN GDM H/O CHTN on Labetalol 400 BID and increased to 600 BID Denies GOLDEN's scotoma or RUQ Pain Mild swelling lower ext 24 Hour urine prot at ob's was 279 and now 12/03/21 at 227 AST/ALT at 12/10 Plts at 261 Creat at .5 H/H at 11.8/36 EFM 135 reactive [facility] US 11/18/21 EFW at 1810g 4#0oz at 89% Receiving Steroids and M Accuchecks 125/82 GDM not taking BS's at home - needs new glucometer Past History Past Medical History: hypertension (chronic hypertension on Labetalol 100 mg BID ), diabetes (gestational diabetes- no meds ), other (Morbid Obesity ) Past Surgical History: section (x 2: 2014, 2019 ) 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 ) Family/Genetic History: diabetes, heart disease Social history: no significant social history - Obstetrical History Expected Date of Delivery: 01/27/22 Actual Gestation: 32 Week(s) 1 Day(s) : 4 Para: 2 Hx # Term Pregnancies: 2 Number of Pregnancies: 0 Spontaneous Abortions: 1 Induced : 0 Number of Living Children: 2 2014 - C/S preeclamp 37 weeks 2019 Repeat C/S CHTN 37 weeks Past History Past Medical History: hypertension (chronic hypertension on Labetalol 100 mg BID ), diabetes (gestational diabetes- no meds ), other (Morbid Obesity ) Past Surgical History: section (x 2: 2014, 2019 ) 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 ) Family/Genetic History: diabetes, heart disease - Obstetrical History : 4 Medications and Allergies Allergies Allergy/AdvReac Type Severity Reaction Status Date / Time No Known Allergies Allergy Verified 07/12/19 11:09 Home Medications Medication Instructions Recorded Confirmed Last Taken Type Aspirin [Adult Aspirin] 1 tab PO DAILY 07/23/20 07/23/20 1 Day Ago History ~07/22/20 Labetalol HCl [Labetalol 300mg TAB] 2 tab PO BID 07/23/20 07/23/20 1 Day Ago History ~07/22/20 Vit-Fe Fumar-FA [ 1 tab PO DAILY 07/23/20 07/23/20 1 Day Ago History Vitamin] ~07/22/20 Ibuprofen [Motrin] 800 mg PO Q8HR PRN #60 tablet 07/25/20 Unknown Rx oxyCODONE /ACETAMINOPHEN [Percocet 1 tab PO Q6HR PRN #30 tablet 07/25/20 Unknown Rx 5/325] Famotidine [Pepcid] 20 mg PO BID #30 tablet 11/20/20 Unknown Rx Naproxen 500 mg PO BID PRN #30 tablet 11/20/20 Unknown Rx Ondansetron [Zofran Odt] 4 mg PO Q8HR PRN #12 tab.rapdis 11/20/20 Unknown Rx labetaloL [Labetalol 100mg TAB] 200 mg PO BID #60 tablet 11/20/20 Unknown Rx Active Meds: Active Medications Acetaminophen (Acetaminophen 325 Mg Tab) 650 mg PO Q4H PRN PRN Reason: Pain MILD(1-3)/Fever >100.5/GOLDEN Calcium Gluconate (Calcium Gluconate 1000 Mg/10 Ml Inj) 1,000 mg IV ONCE BARRY Dextrose (Dextrose 10% *Hypoglycemia) 0 ml IV PRN PRN PRN Reason: Hypoglycemia Docusate Sodium (Docusate Sodium 100 Mg Cap) 100 mg PO Q12H PRN PRN Reason: Constipation Hydralazine HCl (Hydralazine 20 Mg/1 Ml Inj) 5 mg IV Q30MIN PRN PRN Reason: Hypertension Lactated Ringer's (Lactated Ringers) 1,000 mls @ 125 mls/hr IV DIRECT [facility] Last Admin: 12/03/21 17:36 Dose: 75 mls/hr Magnesium Sulfate (Magnesium Sulfate 40gm/1000ml) 40 gm in 1,000 mls @ 50 mls/hr IV DIRECT [facility] Last Admin: 12/03/21 17:35 Dose: 2 gm/hr, 50 mls/hr Insulin Human Regular (Insulin Regular, Human 100 Units/1 Ml) 0 units SUB-Q Q4H PRN; Protocol PRN Reason: Hyperglycemia Labetalol HCl (Labetalol 200 Mg Tab) 600 mg PO 0700,1900 [facility] Last Admin: 12/03/21 06:55 Dose: 600 mg Multivitamins/Iron/Calcium ( [id number]-Up Fumarate-Folic Acid Vit Tab) 1 each PO QDAY [facility] Last Admin: 12/03/21 16:39 Dose: 1 each Ondansetron HCl (Ondansetron 4 Mg/2 Ml Inj) 4 mg IV Q6H PRN PRN Reason: Nausea And Vomiting Simethicone (Simethicone 80 Mg Chew Tab) 80 mg PO Q6H PRN PRN Reason: Gas pain Sodium Chloride (Sodium Chloride Nasal [place] 44ml) 2 spray NS Q4H PRN PRN Reason: Congestion - Vital Signs Vital signs: Vital Signs Pulse BP 86 205/91 12/02/21 14:54 12/02/21 14:54 Temp Pulse Resp BP Pulse Ox 98.3 F 84 18 162/73 97 12/03/21 14:50 12/03/21 18:34 12/03/21 07:24 12/03/21 18:28 12/03/21 18:34 Results Result Diagrams: 12/02/21 15:25 12/02/21 15:25 Abnormal lab results 12/02/21 12/03/21 12/03/21 Range/Units 14:45 08:09 12:38 POC Glucose 125 H 150 H (70-105) mg/dL Ur Total Protein 24 Hr 227.50 H (2-200) mg/dL 12/03/21 Range/Units 16:42 POC Glucose 142 H (70-105) mg/dL Ur Total Protein 24 Hr (2-200) mg/dL All other labs normal. Assessment and Plan Impression 1. Haney IUP at 32 2/7 weeks 2. CHTN - BP stable on Labetalol 600 BID 3. GDM - 4. MO 5. AMA 6. H/O C/S X 2 7. H/O Preeclampsia 8. HSV 9. Pos Quad for DS Rec 1. Steroids for FLM 2. May DC Mg 3. Cont Labetalol 600 BID 4. Accuchecks fasting and 2 HPP's 5. If BP's remain stable overnight without S/S of severe features would dc home with PIH instructions and call for S/S of PIH or elevated BS 6. PIH labs q week 7. FU with [facility] one week 8. Obtain HbA1c and Fructosamine prior to dc 9. Discussed with Dr. Matos
[2021-12-04] MEDS: PRENATAL VIT27-FE FUMARATE-FOLIC ACID VIT TAB PO SCH (10:18)
[2021-12-04 14:18] VITALS: BP 140/65
--- NOTE | 2021-12-04 15:47 | Progress Note ---
Assessment and Plan IUP a 32 weeks here with chronic hypertension. BP stable overnight. Pt ok to go home with precautions per Dr. Chino. We will plan for discharge today. Patient advised to follow-up in the office this week Subjective - Subjective Date of service: 12/04/21 Interval history: Pt here with elevated bp and chronic hypertension at 32 weeks gestation. Pressures are currently stable. Per Dr Corbett, pt ok for discharge on today. Patient reports: other Objective - Vital Signs Vital Signs: Vital Signs - 12hr 12/04/21 12/04/21 12/04/21 03:44 03:49 03:54 Pulse Rate 75 73 75 Respiratory Rate Blood Pressure O2 Sat by Pulse 97 96 96 Oximetry O2 Sat by Pulse Oximetry [ Bilateral] 12/04/21 12/04/21 12/04/21 03:59 04:00 04:04 Pulse Rate 71 72 Respiratory 16 Rate Blood Pressure O2 Sat by Pulse 97 97 Oximetry O2 Sat by Pulse Oximetry [ Bilateral] 12/04/21 12/04/21 12/04/21 04:09 04:13 04:14 Pulse Rate 73 74 74 Respiratory Rate Blood Pressure O2 Sat by Pulse 96 94 95 Oximetry O2 Sat by Pulse Oximetry [ Bilateral] 12/04/21 12/04/21 12/04/21 04:19 04:24 04:25 Pulse Rate 73 75 72 Respiratory Rate Blood Pressure O2 Sat by Pulse 94 94 94 Oximetry O2 Sat by Pulse Oximetry [ Bilateral] 12/04/21 12/04/21 12/04/21 04:29 04:33 04:34 Pulse Rate 98 H 77 73 Respiratory Rate Blood Pressure 105/52 O2 Sat by Pulse 97 94 94 Oximetry O2 Sat by Pulse Oximetry [ Bilateral] 12/04/21 12/04/21 12/04/21 04:39 04:44 04:49 Pulse Rate 71 73 74 Respiratory Rate Blood Pressure O2 Sat by Pulse 96 96 97 Oximetry O2 Sat by Pulse Oximetry [ Bilateral] 12/04/21 12/04/21 12/04/21 04:54 04:59 05:04 Pulse Rate 74 72 75 Respiratory Rate Blood Pressure O2 Sat by Pulse 95 96 98 Oximetry O2 Sat by Pulse Oximetry [ Bilateral] 12/04/21 12/04/21 12/04/21 05:09 05:14 05:17 Pulse Rate 86 73 88 Respiratory Rate Blood Pressure O2 Sat by Pulse 98 97 93 Oximetry O2 Sat by Pulse Oximetry [ Bilateral] 12/04/21 12/04/21 12/04/21 05:19 05:23 05:24 Pulse Rate 71 84 89 Respiratory Rate Blood Pressure O2 Sat by Pulse 97 94 97 Oximetry O2 Sat by Pulse Oximetry [ Bilateral] 12/04/21 12/04/21 12/04/21 05:29 05:32 05:34 Pulse Rate 100 H 78 88 Respiratory Rate Blood Pressure 117/56 O2 Sat by Pulse 98 92 97 Oximetry O2 Sat by Pulse Oximetry [ Bilateral] 12/04/21 12/04/21 12/04/21 05:37 05:39 05:42 Pulse Rate 86 76 78 Respiratory Rate Blood Pressure O2 Sat by Pulse 92 95 93 Oximetry O2 Sat by Pulse Oximetry [ Bilateral] 12/04/21 12/04/21 12/04/21 05:44 05:48 05:49 Pulse Rate 75 86 69 Respiratory Rate Blood Pressure O2 Sat by Pulse 97 94 98 Oximetry O2 Sat by Pulse Oximetry [ Bilateral] 12/04/21 12/04/21 12/04/21 05:53 05:54 05:58 Pulse Rate 77 86 70 Respiratory Rate Blood Pressure O2 Sat by Pulse 93 98 94 Oximetry O2 Sat by Pulse Oximetry [ Bilateral] 12/04/21 12/04/21 12/04/21 05:59 06:00 06:04 Pulse Rate 77 68 Respiratory 15 Rate Blood Pressure O2 Sat by Pulse 95 97 Oximetry O2 Sat by Pulse Oximetry [ Bilateral] 12/04/21 12/04/21 12/04/21 06:09 06:12 06:14 Pulse Rate 73 75 69 Respiratory Rate Blood Pressure O2 Sat by Pulse 96 93 98 Oximetry O2 Sat by Pulse Oximetry [ Bilateral] 12/04/21 12/04/21 12/04/21 06:19 06:24 06:29 Pulse Rate 79 76 75 Respiratory Rate Blood Pressure 117/56 164/75 O2 Sat by Pulse 97 97 97 Oximetry O2 Sat by Pulse Oximetry [ Bilateral] 12/04/21 12/04/21 12/04/21 06:34 06:39 06:44 Pulse Rate 73 71 71 Respiratory Rate Blood Pressure O2 Sat by Pulse 97 96 95 Oximetry O2 Sat by Pulse Oximetry [ Bilateral] 12/04/21 12/04/21 12/04/21 06:45 06:49 06:54 Pulse Rate 69 78 72 Respiratory Rate Blood Pressure O2 Sat by Pulse 94 94 95 Oximetry O2 Sat by Pulse Oximetry [ Bilateral] 12/04/21 12/04/21 12/04/21 06:56 06:59 07:04 Pulse Rate 72 70 71 Respiratory Rate Blood Pressure O2 Sat by Pulse 94 97 96 Oximetry O2 Sat by Pulse Oximetry [ Bilateral] 12/04/21 12/04/21 12/04/21 07:09 07:14 07:19 Pulse Rate 74 74 73 Respiratory Rate Blood Pressure O2 Sat by Pulse 96 96 95 Oximetry O2 Sat by Pulse Oximetry [ Bilateral] 12/04/21 12/04/21 12/04/21 07:24 07:29 07:34 Pulse Rate 89 78 73 Respiratory Rate Blood Pressure 169/79 O2 Sat by Pulse 96 97 97 Oximetry O2 Sat by Pulse Oximetry [ Bilateral] 12/04/21 12/04/21 12/04/21 07:39 07:44 07:48 Pulse Rate 72 82 67 Respiratory Rate Blood Pressure 143/73 O2 Sat by Pulse 98 97 Oximetry O2 Sat by Pulse Oximetry [ Bilateral] 12/04/21 12/04/21 12/04/21 07:49 07:54 07:59 Pulse Rate 73 82 76 Respiratory Rate Blood Pressure O2 Sat by Pulse 97 96 98 Oximetry O2 Sat by Pulse Oximetry [ Bilateral] 12/04/21 12/04/21 12/04/21 08:00 08:04 08:09 Pulse Rate 70 74 72 Respiratory Rate Blood Pressure 149/75 O2 Sat by Pulse 97 97 Oximetry O2 Sat by Pulse Oximetry [ Bilateral] 12/04/21 12/04/21 12/04/21 08:14 08:15 08:19 Pulse Rate 84 75 84 Respiratory Rate Blood Pressure 161/77 O2 Sat by Pulse 96 97 Oximetry O2 Sat by Pulse Oximetry [ Bilateral] 12/04/21 12/04/21 12/04/21 08:24 08:29 08:30 Pulse Rate 80 79 72 Respiratory Rate Blood Pressure 136/64 O2 Sat by Pulse 96 96 Oximetry O2 Sat by Pulse Oximetry [ Bilateral] 12/04/21 12/04/21 12/04/21 08:34 08:39 08:44 Pulse Rate 78 79 78 Respiratory Rate Blood Pressure O2 Sat by Pulse 97 96 97 Oximetry O2 Sat by Pulse Oximetry [ Bilateral] 12/04/21 12/04/21 12/04/21 08:45 08:49 08:54 Pulse Rate 78 74 75 Respiratory Rate Blood Pressure 127/64 O2 Sat by Pulse 97 97 Oximetry O2 Sat by Pulse Oximetry [ Bilateral] 12/04/21 12/04/21 12/04/21 08:59 09:00 09:04 Pulse Rate 81 71 74 Respiratory Rate Blood Pressure 133/65 O2 Sat by Pulse 97 97 Oximetry O2 Sat by Pulse Oximetry [ Bilateral] 12/04/21 12/04/21 12/04/21 09:09 09:14 09:15 Pulse Rate 72 74 73 Respiratory Rate Blood Pressure 124/63 O2 Sat by Pulse 98 96 Oximetry O2 Sat by Pulse Oximetry [ Bilateral] 12/04/21 12/04/21 12/04/21 09:19 09:24 09:28 Pulse Rate 73 74 Respiratory Rate Blood Pressure O2 Sat by Pulse 98 97 Oximetry O2 Sat by Pulse 98 Oximetry [ Bilateral] 12/04/21 12/04/21 12/04/21 09:29 09:34 09:39 Pulse Rate 73 87 73 Respiratory Rate Blood Pressure O2 Sat by Pulse 98 97 98 Oximetry O2 Sat by Pulse Oximetry [ Bilateral] 12/04/21 12/04/21 12/04/21 09:44 09:49 09:54 Pulse Rate 71 70 73 Respiratory Rate Blood Pressure O2 Sat by Pulse 97 98 97 Oximetry O2 Sat by Pulse Oximetry [ Bilateral] 12/04/21 12/04/21 12/04/21 09:59 10:04 10:09 Pulse Rate 71 76 74 Respiratory Rate Blood Pressure O2 Sat by Pulse 98 98 98 Oximetry O2 Sat by Pulse Oximetry [ Bilateral] 12/04/21 12/04/21 12/04/21 10:14 10:19 10:24 Pulse Rate 74 86 76 Respiratory Rate Blood Pressure O2 Sat by Pulse 98 97 98 Oximetry O2 Sat by Pulse Oximetry [ Bilateral] 12/04/21 12/04/21 12/04/21 10:29 10:34 10:39 Pulse Rate 81 79 76 Respiratory Rate Blood Pressure O2 Sat by Pulse 98 98 98 Oximetry O2 Sat by Pulse Oximetry [ Bilateral] 12/04/21 12/04/21 12/04/21 10:44 10:49 10:54 Pulse Rate 71 78 77 Respiratory Rate Blood Pressure O2 Sat by Pulse 98 98 98 Oximetry O2 Sat by Pulse Oximetry [ Bilateral] 12/04/21 12/04/21 12/04/21 10:59 11:04 11:09 Pulse Rate 73 73 74 Respiratory Rate Blood Pressure O2 Sat by Pulse 98 99 97 Oximetry O2 Sat by Pulse Oximetry [ Bilateral] 12/04/21 12/04/21 12/04/21 11:14 11:17 11:19 Pulse Rate 75 71 78 Respiratory Rate Blood Pressure 140/64 O2 Sat by Pulse 98 97 Oximetry O2 Sat by Pulse Oximetry [ Bilateral] 12/04/21 12/04/21 12/04/21 11:24 11:29 11:34 Pulse Rate 79 74 78 Respiratory Rate Blood Pressure O2 Sat by Pulse 98 98 98 Oximetry O2 Sat by Pulse Oximetry [ Bilateral] 12/04/21 12/04/21 12/04/21 11:39 11:44 11:49 Pulse Rate 82 84 85 Respiratory Rate Blood Pressure O2 Sat by Pulse 97 97 98 Oximetry O2 Sat by Pulse Oximetry [ Bilateral] 12/04/21 12/04/21 12/04/21 11:54 11:59 12:04 Pulse Rate 79 85 79 Respiratory Rate Blood Pressure O2 Sat by Pulse 98 97 98 Oximetry O2 Sat by Pulse Oximetry [ Bilateral] 12/04/21 12/04/21 12/04/21 12:09 12:14 12:17 Pulse Rate 83 72 71 Respiratory Rate Blood Pressure 145/67 O2 Sat by Pulse 97 99 Oximetry O2 Sat by Pulse Oximetry [ Bilateral] 12/04/21 12/04/21 12/04/21 12:19 12:24 12:26 Pulse Rate 80 79 78 Respiratory Rate Blood Pressure O2 Sat by Pulse 98 97 90 Oximetry O2 Sat by Pulse Oximetry [ Bilateral] 12/04/21 12/04/21 12/04/21 12:29 12:34 12:39 Pulse Rate 83 76 77 Respiratory Rate Blood Pressure O2 Sat by Pulse 98 98 98 Oximetry O2 Sat by Pulse Oximetry [ Bilateral] 12/04/21 12/04/21 12/04/21 12:42 12:44 12:55 Pulse Rate 66 83 72 Respiratory Rate Blood Pressure O2 Sat by Pulse 86 84 0 L Oximetry O2 Sat by Pulse Oximetry [ Bilateral] 12/04/21 12/04/21 12/04/21 13:02 13:06 13:07 Pulse Rate 66 63 Respiratory Rate Blood Pressure O2 Sat by Pulse 31 L 84 90 Oximetry O2 Sat by Pulse Oximetry [ Bilateral] 12/04/21 12/04/21 12/04/21 13:11 13:16 13:21 Pulse Rate 76 95 H 76 Respiratory Rate Blood Pressure O2 Sat by Pulse 98 97 98 Oximetry O2 Sat by Pulse Oximetry [ Bilateral] 12/04/21 12/04/21 12/04/21 13:26 13:27 13:31 Pulse Rate 75 74 74 Respiratory Rate Blood Pressure O2 Sat by Pulse 96 94 98 Oximetry O2 Sat by Pulse Oximetry [ Bilateral] 12/04/21 12/04/21 12/04/21 13:33 13:36 13:41 Pulse Rate 72 78 73 Respiratory Rate Blood Pressure O2 Sat by Pulse 94 96 97 Oximetry O2 Sat by Pulse Oximetry [ Bilateral] 12/04/21 12/04/21 12/04/21 13:44 13:46 13:49 Pulse Rate 79 72 77 Respiratory Rate Blood Pressure O2 Sat by Pulse 93 96 94 Oximetry O2 Sat by Pulse Oximetry [ Bilateral] 12/04/21 12/04/21 12/04/21 13:51 13:54 13:56 Pulse Rate 77 77 78 Respiratory Rate Blood Pressure O2 Sat by Pulse 95 94 96 Oximetry O2 Sat by Pulse Oximetry [ Bilateral] 12/04/21 12/04/21 12/04/21 14:01 14:06 14:11 Pulse Rate 77 98 H 76 Respiratory Rate Blood Pressure O2 Sat by Pulse 96 97 96 Oximetry O2 Sat by Pulse Oximetry [ Bilateral] 12/04/21 12/04/21 12/04/21 14:13 14:16 14:17 Pulse Rate 84 82 68 Respiratory Rate Blood Pressure 140/65 O2 Sat by Pulse 92 98 Oximetry O2 Sat by Pulse Oximetry [ Bilateral] 12/04/21 12/04/21 12/04/21 14:21 14:26 14:31 Pulse Rate 77 75 86 Respiratory Rate Blood Pressure O2 Sat by Pulse 99 99 98 Oximetry O2 Sat by Pulse Oximetry [ Bilateral] 12/04/21 12/04/21 12/04/21 14:36 14:41 14:46 Pulse Rate 81 75 76 Respiratory Rate Blood Pressure O2 Sat by Pulse 99 100 99 Oximetry O2 Sat by Pulse Oximetry [ Bilateral] 12/04/21 12/04/21 12/04/21 14:51 14:56 15:01 Pulse Rate 76 75 73 Respiratory Rate Blood Pressure O2 Sat by Pulse 99 98 98 Oximetry O2 Sat by Pulse Oximetry [ Bilateral] 12/04/21 12/04/21 12/04/21 15:06 15:08 15:21 Pulse Rate 73 81 95 H Respiratory Rate Blood Pressure O2 Sat by Pulse 99 91 77 L Oximetry O2 Sat by Pulse Oximetry [ Bilateral] 12/04/21 12/04/21 12/04/21 15:23 15:26 15:28 Pulse Rate 72 95 H 66 Respiratory Rate Blood Pressure O2 Sat by Pulse 99 49 L 53 L Oximetry O2 Sat by Pulse Oximetry [ Bilateral] 12/04/21 12/04/21 12/04/21 15:32 15:34 15:40 Pulse Rate 52 L 72 70 Respiratory Rate Blood Pressure O2 Sat by Pulse 25 L 74 L 62 L Oximetry O2 Sat by Pulse Oximetry [ Bilateral] - Exam Lungs: Clear to auscultation, Normal air movement Abdomen: Present: normal appearance, soft. Absent: distention, tenderness Uterus: Present: normal FHR: auscultation normal, category 1 - Labs Labs: Abnormal Labs 12/02/21 12/02/21 12/02/21 14:45 15:00 15:25 Creatinine 0.5 L POC Glucose Magnesium U Epithel Cells (Auto) 17.0 H Ur Total Protein 24 Hr 227.50 H 12/03/21 12/03/21 12/03/21 08:09 12:38 16:42 Creatinine POC Glucose 125 H 150 H 142 H Magnesium U Epithel Cells (Auto) Ur Total Protein 24 Hr 12/03/21 12/04/21 12/04/21 20:18 00:26 00:34 Creatinine POC Glucose 139 H 178 H Magnesium 4.30 H U Epithel Cells (Auto) Ur Total Protein 24 Hr 12/04/21 12/04/21 05:08 07:21 Creatinine POC Glucose 153 H Magnesium 4.50 H U Epithel Cells (Auto) Ur Total Protein 24 Hr Laboratory Results - last 24 hr 12/02/21 12/03/21 12/03/21 14:45 16:42 20:18 POC Glucose 142 H 139 H Magnesium Urine Total Volume 3250 Ur Total Protein 24 Hr 227.50 H Urine Total Protein 7 12/04/21 12/04/21 12/04/21 00:26 00:34 05:08 POC Glucose 178 H 153 H Magnesium 4.30 H Urine Total Volume Ur Total Protein 24 Hr Urine Total Protein 12/04/21 12/04/21 07:21 14:35 POC Glucose 103 Magnesium 4.50 H Urine Total Volume Ur Total Protein 24 Hr Urine Total Protein
--- NOTE | 2021-12-04 15:55 | Discharge Summary ---
Providers - Providers Date of Admission: 12/02/21 16:57 Date of discharge: 12/04/21 Attending physician: JASON MATOS 12/02/21 16:56 Consult to Dietitian/Nutrition [CONS] Routine Physician Instructions: Reason For Exam: Reason for Consult: Diet education 12/03/21 07:08 Consult to Physician [CONS] Routine Comment: Consulting Provider: AISHA ALLAN Physician Instructions: Reason For Exam: IUP at 32 wks, chtn, gestational dm, mo 12/03/21 07:09 Consult to Case Management [CONS] Routine Services Needed at Discharge: Other Additional Physician Instructions: Pt needs a glucometer. received one that broke and insurance will not cover another one. Pt unable to afford machine on her own. No glucometer for one month. Primary care physician: ZHANG KIMBLE MD Hospitalization Reason for admission: other Procedure: other (none) Condition at discharge: Stable Disposition: 01 HOME / SELF CARE / HOMELESS - Discharge Diagnoses (1) Chronic hypertension during , antepartum Status: Chronic (2) Diabetes in Status: Chronic Qualifiers: Diabetes in type: gestational Gestational diabetes mellitus control: insulin-controlled Trimester: third trimester Qualified Code(s): O24.414 - Gestational diabetes mellitus in , insulin controlled (3) Morbid obesity Status: Chronic Plan - Discharge Medications Prescriptions: labetaloL [Labetalol 200mg TAB] 3 tab PO BID #180 tablet - Provider Discharge Summary Activity: routine Diet: routine Instructions: routine Additional instructions: [] Smoking cessation referral if applicable(refer to patient education folder for contact #) [] Refer to [facility] Booklet Call your doctor immediately for: * Fever > 100.5 * Heavy vaginal bleeding ( >1 pad per hour) * Severe persistent headache * Shortness of breath * Reddened, hot, painful area to leg or breast * Drainage or odor from incision. * Keep incision clean and dry at all times and follow doctor's instructions regarding bathing/showering - Follow up plan Follow up: ZHANG CHAPIN MD [Primary Care Provider] - 7 Days
== END 2021-12-04 17:49 | disposition home or self-care (01) | DRG 781 ==
LOC: TRG 14:17 → APU 14:18 → LD 15:52 → OBSVTOIN 16:57 → LD 16:57 → TRG 17:57
PROVIDERS: ADMIT Obstetrics & Gynecology; ATTEND Obstetrics & Gynecology
DX: O24.414 Gestational diabetes mellitus in pregnancy, insulin controlled (principal); O10.913 Unspecified pre-existing hypertension complicating pregnancy, third trimester; Z3A.32 32 weeks gestation of pregnancy; Z20.822 Contact with and (suspected) exposure to COVID-19; O98.313 Other infections with a predominantly sexual mode of transmission complicating pregnancy, third trimester; A60.00 Herpesviral infection of urogenital system, unspecified; O99.213 Obesity complicating pregnancy, third trimester; E66.01 Morbid (severe) obesity due to excess calories; O99.343 Other mental disorders complicating pregnancy, third trimester; O40.3XX0 Polyhydramnios, third trimester, not applicable or unspecified; O99.820 Streptococcus B carrier state complicating pregnancy
CPT/HCPCS: 36415; 81001; 82565; 82962; 83036; 83615; 83735; 84156; 84450; 84460; 84550; 85027; 86850; 86900; 86901; G0378; Q9967; J0702; J1815; J3475; J7120; U0003

== ENCOUNTER 2022-01-03 05:10 | Inpatient (IN) | payer MEDICAID ==
[2021-12-28 09:53] LABS: Hematocrit 33.9 % (30.3-42.9); Hemoglobin 10.9 gm/dl (10.1-14.3); Mean Corpuscular HGB Conc 32 % (30-34); Mean Corpuscular Volume 88 fl (79-97); Platelet Count 269 K/mm3 (140-440); Red Blood Count 3.87 M/mm3 (3.65-5.03); Red Cell Distribution Width 14.2 % (13.2-15.2)
--- NOTE | 2021-12-28 10:09 | Anesthesia Consultation ---
Anesthesia Consult and Med Hx Date of service: 12/28/21 - Airway Anesthetic Teeth Evaluation: Good ROM Head & Neck: Adequate Mental/Hyoid Distance: Adequate Mallampati Class: Class II Intubation Access Assessment: Possibly Difficult - Pulmonary Exam CTA: Yes - Cardiac Exam Cardiac Exam: RRR - Pre-Operative Health Status ASA Pre-Surgery Classification: ASA3 Proposed Anesthetic Plan: Spinal - Pulmonary Hx Smoking: Yes (Former quit 06/02) Hx Asthma: No COPD: No Hx Pneumonia: No - Cardiovascular System Hx Hypertension: Yes (Chronic) - Central Nervous System Hx Seizures: No Hx Psychiatric Problems: No - Endocrine Hx Renal Disease: No Hx End Stage Renal Disease: No Hx Non-Insulin Dependent Diabetes: Yes (Metformin) Hx Hypothyroidism: No Hx Hyperthyroidism: No - Hematic Hx Anemia: Yes (With first ) Hx Sickle Cell Disease: No - Other Systems Hx Alcohol Use: No Hx Cancer: No Hx Obesity: Yes
[2021-12-28 10:17] LABS: Blood Urea Nitrogen 9 mg/dL (7-17); Calcium 8.8 mg/dL (8.4-10.2); Hemolysis Index 12
[2021-12-28 10:25] LABS: BUN/Creatinine Ratio 15
[2022-01-03] MEDS ORDERED: LACTATED RINGERS 1,000 ML ONE (05:18)
--- NOTE | 2022-01-03 06:32 | History and Physical Report ---
History of Present Illness Date of examination: 01/03/22 Date of admission: 01/03/22 05:10 Chief complaint: History of present illness: 36y/o @ 36+4 weeks presents for a scheduled delivery. The patient's course is complicated by chronic hypertension, GDMA2 on metformin, polydramnios, morbid obesity, advanced maternal age. The patient has had 2 previous cesareans. She has received steroids during the in anticipation of a delivery. She is GBS and HSV II positive. She denies any recent prodrome. Past History Past Medical History: hypertension, other (GDMA2, morbid obesity) Past Surgical History: section [employer] History: herpes Social history: no significant social history - Obstetrical History Expected Date of Delivery: 01/27/22 Actual Gestation: 36 Week(s) 4 Day(s) : 4 Para: 2 Hx # Term Pregnancies: 2 Number of Pregnancies: 0 Spontaneous Abortions: 1 Induced : 0 Number of Living Children: 2 Medications and Allergies Allergies Allergy/AdvReac Type Severity Reaction Status Date / Time No Known Allergies Allergy Verified 12/24/21 17:19 Home Medications Medication Instructions Recorded Confirmed Last Taken Type Aspirin [Adult Aspirin] 1 tab PO DAILY 07/23/20 12/24/21 1 Day Ago History ~07/22/20 Vit-Fe Fumar-FA [ 1 tab PO DAILY 07/23/20 12/24/21 1 Day Ago History Vitamin] ~07/22/20 Metformin HCl [Metformin HCl ER] 500 mg PO HS 12/24/21 12/24/21 Unknown History Metformin HCl [Metformin HCl ER] 500 mg PO QPM 12/24/21 12/24/21 Unknown History Metformin HCl [metFORMIN] 1,000 mg PO QAM 12/24/21 12/24/21 Unknown History labetaloL [Labetalol 200mg TAB] 300 mg PO BID 12/24/21 12/24/21 Unknown History Review of Systems All systems: negative Genitourinary: leakage of fluid - Vital Signs Vital signs: Vital Signs Pulse Ox 93 12/04/21 15:45 Temp Pulse Resp BP Pulse Ox 98 F 82 20 136/63 99 12/28/21 09:35 01/03/22 06:26 12/28/21 09:35 01/03/22 06:22 01/03/22 06:26 - Physical Exam Breasts: Positive: deferred Cardiovascular: Regular rate Lungs: Positive: Clear to auscultation Abdomen: Positive: normal appearance Results Result Diagrams: 12/28/21 09:35 12/28/21 09:35 All other labs normal. Assessment and Plan - Patient Problems (1) Previous delivery affecting Current Visit: Yes Status: Acute Plan to address problem: admit for a scheduled delivery (2) Chronic hypertension during , antepartum Current Visit: No Status: Chronic (3) Diabetes in Current Visit: No Status: Chronic Qualifiers: Diabetes in type: gestational Gestational diabetes mellitus control: insulin-controlled Trimester: third trimester Qualified Code(s): O24.414 - Gestational diabetes mellitus in , insulin controlled (4) Morbid obesity Current Visit: No Status: Chronic
[2022-01-03] MEDS ORDERED: METOCLOPRAMIDE 10 MG/2 ML INJ IV ONE (06:34)
[2022-01-03] MEDS ORDERED: FAMOTIDINE 20 MG/2 ML INJ IV ONE (06:34)
[2022-01-03] MEDS ORDERED: BICITRA ORAL LIQD 30ML PO ONE (06:34)
[2022-01-03] MEDS ORDERED: KETOROLAC 30 MG/1 ML INJ ONE (06:44)
[2022-01-03] MEDS ORDERED: ONDANSETRON 4 MG/2 ML INJ ONE (06:44)
[2022-01-03] MEDS ORDERED: BUPIVACAINE/PF (0.5%) 5 MG/1 ML 30 ML VIAL INFILTRATI ONE (06:44)
[2022-01-03] MEDS ORDERED: dexAMETHasone 20 MG/5 ML VIAL ONE (06:44)
[2022-01-03] MEDS ORDERED: LACTATED RINGERS 1,000 ML IV SCH (06:45)
[2022-01-03] MEDS ORDERED: OXYTOCIN DRIP 30 UNITS/500 ML BAG IV SCH ×2 (07:00→08:00)
--- NOTE | 2022-01-03 07:14 | Anesthesia Day of Surgery ---
Anesthesia Day of Surgery - Day of Surgery Patient Examined: Yes Patient H&P Reviewed: Yes Patient is NPO: Yes Beta Blockers: No Cardiac Clearance: No Pulmonary Clearance: No Hesham's Test: N/A
[2022-01-03] MEDS ORDERED: NALOXONE 0.4 MG/1 ML INJ IV PRN ×2 (07:30→08:00)
[2022-01-03 07:39] LABS: Basophils % (Auto) 0.5 % (0.0-1.8); Eosinophils # (Auto) 0.1 K/mm3 (0.0-0.4); Eosinophils % (Auto) 1.3 % (0.0-4.3); Hematocrit 32.1 % (30.3-42.9); Hemoglobin 10.9 gm/dl (10.1-14.3); Lymphocytes # (Auto) 1.6 K/mm3 (1.2-5.4); Lymphocytes % (Auto) 26.4 % (13.4-35.0); Mean Corpuscular HGB Conc 34 % (30-34); Mean Corpuscular Volume 88 fl (79-97); Monocytes # (Auto) 0.6 K/mm3 (0.0-0.8); Monocytes % (Auto) 9.6 % (0.0-7.3); Platelet Count 265 K/mm3 (140-440); Red Blood Count 3.63 M/mm3 (3.65-5.03); Red Cell Distribution Width 14.6 % (13.2-15.2)
--- NOTE | 2022-01-03 07:42 | Operative Report ---
Operative Report Operative Report: Date of surgery: January 03, 2022 Preoperative diagnosis: at 36 with 4 weeks; previous d elivery; chronic hypertension; gestational diabetes; morbid obesity Postoperative diagnosis: Same as above Procedure: Repeat low transverse delivery and lysis of adhesions Surgeon: Arlin Riley M.D. Anesthesia: Regional Estimated blood loss: Default value IV fluids: 1000 mL Urine output: 250 mL Findings: Liveborn male infant with Apgars of 8 and 9 weight 6 pounds 4 ounces Indications: 36-year-old -0-1-2 at 36+4 weeks who presents for repeat delivery. course is complicated by chronic hypertension and gestational diabetes. The patient received steroids during her antepartum. Procedure: The patient was taken to the operating room and given regional anesthesia without complication. She was prepped and draped in a normal sterile fashion. A Pfannenstiel skin incision was made down to layer the fascia which was nicked in the midline extended laterally with the Bovie cautery. The superior aspect of the rectus fascia was grasped with Luciana clamps x2 and the rectus muscles off sharply. This was done in inferior fashion as well. The rectus muscle midline and peritoneum entered bluntly. The rectus muscle was noted to be obliterated with dehiscence of the peritoneum through the thinned muscle. The uterus was noted to be adherent anteriorly and lysis of adhesions had to be performed. An Pedro retr actor was then inserted. A bladder blade was placed. The vesicouterine peritoneum was then entered sharply with Metzenbaum scissors. The bladder was adherent to the lower uterine segment. A bladder flap was created digitally. A low transverse uterine incision was then made and extended digitally. There was clear fluid upon entry into the uterine cavity. The head was delivered through the incision with fundal pressure. The cord was clamped and cut x2 and was passed off to pediatrics. The placenta was then manually extracted. The uterus could not be exteriorized. The uterine cavity was swept and cleared of clots and debris. The uterine incision was then closed in a running locked fashion with 0 Vicryl additional imbricating stitch was applied for 2 layer closure. The posterior cul-de-sac was then copiously irrigated. the gutters were then irrigated. The Pedro retractor was then removed. The peritoneum could not be effectively reapproximated secondary to the poor quality of the rectus muscle. The fascia was then closed with 0 Vicryl in a running fashion. The skin was then reapproximated with 3-0 Monocryl on a Hunter needle subcuticular fashion. Steri-Strips to place across the incision and a Crede procedures performed at the end of the surgery. A pressure dressing was applied to the incision. The surgery productive of a liveborn male with Apgars of 8 and 9 weight 6 pounds 4 ounces. The patient was taken to the recovery room in stable condition. All sponge laps and needle counts correct x2.
--- NOTE | 2022-01-03 07:42 | Procedure Note ---
OB Delivery Note - Delivery Date of Delivery: 01/03/22 Surgeon: JAMILAH YUNG - Section Preop diagnosis: repeat Postop diagnosis: same section procedure: section Disposition: PACU Complications: none - Infant A at 1 minute: 8 at 5 minutes: 9 Infant Gender: Male (Weight 6 pounds 4 ounces)
[2022-01-03] MEDS ORDERED: PROMETHAZINE 25 MG RECT SUPP PR PRN (08:00)
[2022-01-03] MEDS ORDERED: KETOROLAC 30 MG/1 ML INJ IV PRN (08:00)
[2022-01-03] MEDS ORDERED: diphenhydrAMINE 50 MG/ML VIAL IV PRN (08:00)
[2022-01-03] MEDS ORDERED: ONDANSETRON 4 MG/2 ML INJ IV PRN (08:00)
[2022-01-03] MEDS ORDERED: WITCH HAZEL/ GLYCERIN PAD TP PRN (08:00)
[2022-01-03] MEDS ORDERED: MORPHINE 4 MG/1 ML INJ IV PRN (08:00)
[2022-01-03] MEDS ORDERED: ACETAMINOPHEN 325 MG TAB PO PRN (08:00)
[2022-01-03] MEDS ORDERED: PROMETHAZINE 25 MG TAB PO PRN (08:00)
[2022-01-03] MEDS ORDERED: HYDROmorphone 1 MG/1 ML INJ IV PRN (08:00)
[2022-01-03] MEDS ORDERED: LANOLIN/ZINC/DIMETHICONE (LANSINOH) 7 GM TP PRN (08:00)
[2022-01-03] MEDS ORDERED: NalbUPHINE 10 MG/1 ML INJ IV PRN (08:00)
[2022-01-03] MEDS ORDERED: ePHEDrine SULFATE 50 MG/1 ML INJ ONE (08:07)
[2022-01-03] MEDS ORDERED: PHENYLEPHRINE/NS 1,000 MCG/10 ML SYRINGE (OR USE) IV ONE (08:07)
[2022-01-03] MEDS ORDERED: ceFAZolin/STERILE WATER 2 GM/20 ML SYRINGE IV ONE (08:20)
[2022-01-03] MEDS ORDERED: SODIUM CHLORIDE 0.9% IRR 1,500 ML BOTTLE IR ONE (08:25)
[2022-01-03] MEDS ORDERED: WATER FOR IRRIG STERILE 1,500 ML BOTTLE IR ONE (08:25)
--- NOTE | 2022-01-03 09:36 | Progress Note ---
Spinal Anesthesia Block - Spinal Anesthesia Block Start Time: 07:45 Stop Time: 07:55 Performed by:: OMER LOCKE Procedure: Combined spinal epidural i sbeing performed for C/S. H&P, labs were reviewed. All questions and concerns were answered. Informed consent was obtained. Timeout performed. Patient in sitting position on side of bed. Sterile prep and drape was performed. 3 mL 1% lidocaine skin wheal at L [3]-L [4]. 17-gauge Tuohy epidural needle advanced to [id number] using air technique, [9]. 25-gauge spinal needle advanced, positive free-flowing CSF. Spinal dose of [Precedex 5mcg and Marcaine 10mg]. Epidural catheter advanced to [15] cm. [negative] Aspiration, [negative] test dose. Sterile dressing applied. Patient tolerated procedure well.
[2022-01-03] MEDS ORDERED: hydrALAZINE 20 MG/1 ML INJ ONE (09:45)
[2022-01-03] MEDS ORDERED: hydrALAZINE 20 MG/1 ML INJ IV ONE ×2 (09:46→12:08)
[2022-01-03] MEDS ORDERED: MAGNESIUM SULFATE 4 GM/100 ML BAG IV ONE (10:20)
[2022-01-03] MEDS: MAGNESIUM SULFATE 40GM/1000ML 40 GM/1,000 ML BAG IV SCH (11:09)
[2022-01-03] MEDS: hydrALAZINE 20 MG/1 ML INJ IV PRN ×2 (12:38→18:21)
[2022-01-03] MEDS: oxyCODONE /ACETAMINOPHEN 5-325MG TAB PO PRN (14:56)
[2022-01-03] MEDS: IBUPROFEN 600 MG TAB PO PRN ×2 (17:33→23:42)
[2022-01-03] MEDS ORDERED: MAGNESIUM HYDROXIDE (MOM) ORAL LIQD UDC PO PRN (22:00)
[2022-01-04 00:01] LABS: Hematocrit 29.7 % (30.3-42.9); Hemoglobin 10.3 gm/dl (10.1-14.3)
[2022-01-04] MEDS: MAGNESIUM SULFATE 40GM/1000ML 40 GM/1,000 ML BAG IV SCH (06:37)
[2022-01-04] MEDS: oxyCODONE /ACETAMINOPHEN 5-325MG TAB PO PRN ×3 (06:42→21:30)
--- NOTE | 2022-01-04 08:29 | Post Anesthesia Evaluation ---
- Post Anesthesia Evaluation Patient Participated: Yes Airway Patent: Yes Stable Respiratory Function: Yes Nausea/Vomiting: No Temp > 96.8F: Yes Pain Manageable: Yes Adequeate Hydration: Yes Anesthesia Complications: No Block Receding Appropriately: Yes Patient on Ventilator: No
--- NOTE | 2022-01-04 09:05 | Progress Note ---
Assessment and Plan A: POD#1 s/p R. C/S at 36wks. CHTN GDM M.O. Oliguria Normotensive P: Continue routine care and to hold Magnesium Sulfate. Closely monitor urinary output and blood pressure. Subjective - Subjective Date of service: 01/04/22 Principal diagnosis: POD#1 s/p R. C/S at 36wks; CHTN; GDM; M.O. Interval history: POD#1 s/p R/ C/S at 36wks. Patient is currently normotensive, reporting adequate pain control and decreasing lochia. She has not passed flatus at this time. Patient reports: pain well controlled, no flatus [place]: doing well Objective - Vital Signs Latest vital signs: Vital Signs Temp Pulse Resp BP BP Pulse Ox Pulse Ox 01/04/22 09:00 74 99 01/04/22 08:55 74 99 01/04/22 08:50 81 98 01/04/22 08:45 77 99 01/04/22 08:40 78 99 01/04/22 08:35 82 99 01/04/22 08:30 80 99 01/04/22 08:25 85 148/79 100 01/04/22 08:20 80 99 01/04/22 08:15 73 99 01/04/22 08:10 70 98 01/04/22 08:05 71 97 01/04/22 08:00 77 98 01/04/22 07:55 83 99 01/04/22 07:50 89 99 01/04/22 07:45 82 98 01/04/22 07:40 75 99 01/04/22 07:35 74 99 01/04/22 07:30 82 99 01/04/22 07:25 84 134/69 99 01/04/22 07:20 76 99 01/04/22 07:15 84 99 01/04/22 07:10 72 99 01/04/22 07:05 71 97 01/04/22 07:00 72 98 01/04/22 06:55 83 99 01/04/22 06:50 78 99 01/04/22 06:45 77 99 01/04/22 06:44 98.2 F 19 01/04/22 06:40 83 98 01/04/22 06:35 83 99 01/04/22 06:30 79 99 01/04/22 06:25 80 99 01/04/22 06:20 88 98 01/04/22 06:15 79 99 01/04/22 06:10 81 98 01/04/22 06:05 89 99 01/04/22 06:03 80 159/74 01/04/22 06:00 83 99 01/04/22 05:55 81 98 01/04/22 05:50 71 97 01/04/22 05:45 72 98 01/04/22 05:40 76 99 01/04/22 05:35 74 97 01/04/22 05:30 74 97 01/04/22 05:25 73 97 01/04/22 05:20 75 98 01/04/22 05:18 79 166/77 01/04/22 05:15 79 96 01/04/22 05:11 77 94 01/04/22 05:10 83 95 01/04/22 05:06 75 94 01/04/22 05:05 84 95 01/04/22 05:00 71 97 01/04/22 04:55 72 98 01/04/22 04:50 68 98 01/04/22 04:45 76 96 01/04/22 04:40 90 96 01/04/22 04:35 72 98 01/04/22 04:33 88 141/73 01/04/22 04:30 73 99 01/04/22 04:25 72 99 01/04/22 04:20 73 97 01/04/22 04:15 77 97 01/04/22 04:10 74 97 01/04/22 04:05 71 97 01/04/22 04:00 72 99 01/04/22 03:55 73 96 01/04/22 03:50 74 96 01/04/22 03:48 75 134/63 01/04/22 03:45 78 98 01/04/22 03:40 79 98 01/04/22 03:35 74 98 01/04/22 03:30 86 98 01/04/22 03:25 72 99 01/04/22 03:20 79 99 01/04/22 03:15 90 98 01/04/22 03:10 81 98 01/04/22 03:05 81 99 01/04/22 03:03 80 135/62 01/04/22 03:00 90 97 01/04/22 02:55 79 97 01/04/22 02:53 87 93 01/04/22 02:50 88 98 01/04/22 02:45 71 96 01/04/22 02:40 75 98 01/04/22 02:35 76 97 01/04/22 02:30 76 97 01/04/22 02:25 75 97 01/04/22 02:20 71 97 01/04/22 02:18 86 122/58 01/04/22 02:15 75 97 01/04/22 02:12 84 91 01/04/22 02:10 69 99 01/04/22 02:06 78 92 01/04/22 02:05 75 98 01/04/22 02:00 78 98 01/04/22 01:55 78 98 01/04/22 01:50 81 98 01/04/22 01:45 77 98 01/04/22 01:40 79 98 01/04/22 01:35 82 98 01/04/22 01:33 82 131/61 01/04/22 01:30 82 98 01/04/22 01:25 84 98 01/04/22 01:20 86 98 01/04/22 01:15 76 96 01/04/22 01:14 79 94 01/04/22 01:10 80 96 01/04/22 01:07 81 94 01/04/22 01:05 78 94 01/04/22 01:01 84 93 01/04/22 01:00 79 96 01/04/22 00:55 82 96 01/04/22 00:54 84 93 01/04/22 00:50 85 95 01/04/22 00:49 83 94 01/04/22 00:48 81 127/61 01/04/22 00:45 79 97 01/04/22 00:40 89 97 01/04/22 00:35 89 98 01/04/22 00:30 86 97 01/04/22 00:25 91 H 96 01/04/22 00:20 76 95 01/04/22 00:18 86 94 01/04/22 00:15 89 98 01/04/22 00:10 79 97 01/04/22 00:05 86 95 01/04/22 00:03 81 131/65 01/04/22 00:00 88 98 02/21/22 23:55 86 98 02/21/22 23:50 83 98 02/21/22 23:45 85 99 02/21/22 23:40 89 99 02/21/22 23:37 98.4 F 19 0221/22 23:35 91 H 98 0221/22 23:30 87 98 0221/22 23:25 82 98 0221/22 23:20 88 98 0221/22 23:18 84 149/74 0221/22 23:15 90 98 0221/22 23:10 89 98 0221/22 23:05 81 98 0221/22 23:00 87 99 0221/22 22:55 89 98 0221/22 22:50 89 98 0221/22 22:45 89 98 0221/22 22:40 89 98 0221/22 22:35 89 98 0221/22 22:33 89 136/72 0221/22 22:30 83 98 0221/22 22:25 82 98 0221/22 22:20 81 96 0221/22 22:15 98 H 97 0221/22 22:10 85 97 0221/22 22:05 87 97 0221/22 22:00 95 H 97 0221/22 21:55 91 H 99 0221/22 21:50 86 98 0221/22 21:48 90 143/67 0221/22 21:45 87 97 0221/22 21:40 89 98 0221/22 21:35 84 98 0221/22 21:30 94 H 98 0221/22 21:25 93 H 98 0221/22 21:20 99 H 98 0221/22 21:15 96 H 98 0221/22 21:10 96 H 98 0221/22 21:05 95 H 98 0221/22 21:03 94 H 155/77 0221/22 21:00 97 H 98 0221/22 20:55 95 H 98 0221/22 20:50 94 H 98 0221/22 20:45 98 H 98 0221/22 20:40 86 98 0221/22 20:35 90 97 0221/22 20:30 90 98 0221/22 20:25 101 H 97 02/21/22 20:20 96 H 97 02 20:18 87 143/68 0222 20:15 94 H 97 0222 20:10 88 97 02 20:05 101 H 98 0222 20:00 91 H 97 01/03/22 19:56 90 97 0222 19:51 94 H 98 0222 19:45 91 H 98 22 19:40 93 H 98 0222 19:35 98 H 98 0222 19:33 94 H 139/71 0222 19:30 98 H 98 0222 19:25 96 H 98 02 19:20 98 H 98 02 19:15 86 98 02 19:10 97.6 F 93 H 18 98 01/03/22 19:05 94 H 98 01/03/22 19:00 91 H 98 01/03/22 18:58 98 01/03/22 18:55 95 H 98 01/03/22 18:50 91 H 97 01/03/22 18:48 82 135/63 0222 18:45 91 H 97 01/03/22 18:40 89 97 0222 18:39 89 135/62 0222 18:38 95 H 135/62 0222 18:35 92 H 97 01/03/22 18:31 87 141/65 141/65 98 01/03/22 18:30 91 H 98 22 18:27 86 144/72 0222 18:26 98.4 F 88 20 142/72 98 22 18:25 88 98 0222 18:20 85 98 22 18:15 93 H 98 22 18:10 89 98 22 18:05 91 H 98 22 18:03 77 186/86 0222 18:00 85 98 22 17:55 82 98 22 17:50 80 98 0222 17:45 80 98 0222 17:41 81 98 0222 17:36 95 H 98 0222 17:30 78 97 0222 17:26 83 98 0222 17:21 85 98 0222 17:18 79 180/83 0222 17:15 77 96 02 17:10 79 97 0222 17:06 83 98 01/03/22 17:00 85 98 01/03/22 16:56 76 97 01/03/22 16:51 81 96 0222 16:45 87 98 0222 16:43 83 173/88 0222 16:40 83 98 02 16:36 76 99 0222 16:33 77 148/75 0222 16:30 79 98 22 16:25 85 98 01/03/22 16:21 84 97 22 16:15 84 98 01/03/22 16:11 86 97 01/03/22 16:05 81 98 01/03/22 16:00 79 98 01/03/22 15:55 84 98 01/03/22 15:50 80 98 22 15:48 78 149/69 0222 15:46 82 98 22 15:40 84 98 0222 15:36 88 98 22 15:30 84 98 22 15:26 96 H 98 22 15:21 84 98 01/03/22 15:16 81 99 01/03/22 15:11 86 98 01/03/22 15:06 84 98 01/03/22 15:03 86 179/84 02 15:01 85 98 22 14:59 98.1 F 86 24 175/86 175/86 98 0222 14:56 89 99 0222 14:51 88 98 0222 14:46 80 98 0222 14:41 87 99 0222 14:36 82 98 0222 14:31 84 98 22 14:26 96 H 98 0222 14:21 86 98 0222 14:18 87 161/89 0222 14:16 89 98 0222 14:11 94 H 98 02/21/22 14:06 86 97 01/03/22 14:01 82 98 01/03/22 13:56 80 98 01/03/22 13:51 89 99 01/03/22 13:46 86 98 01/03/22 13:41 90 98 01/03/22 13:36 90 98 01/03/22 13:33 85 162/71 01/03/22 13:31 99 H 98 01/03/22 13:28 83 171/80 171/80 98 01/03/22 13:26 89 98 01/03/22 13:21 84 98 01/03/22 13:16 89 99 01/03/22 13:11 96 H 99 01/03/22 13:06 92 H 98 01/03/22 13:01 88 98 01/03/22 12:56 85 98 01/03/22 12:55 84 162/77 01/03/22 12:54 86 162/77 99 01/03/22 12:51 83 99 01/03/22 12:50 83 172/86 01/03/22 12:49 95 H 172/86 98 01/03/22 12:46 83 98 01/03/22 12:45 85 158/82 01/03/22 12:44 82 158/82 98 01/03/22 12:41 79 98 01/03/22 12:39 78 180/88 01/03/22 12:38 78 180/88 01/03/22 12:36 76 98 01/03/22 12:31 82 96 01/03/22 12:26 77 99 01/03/22 12:21 84 98 01/03/22 12:16 78 96 01/03/22 12:11 77 98 01/03/22 12:05 76 99 01/03/22 12:01 98.2 F 81 16 173/83 98 01/03/22 11:59 77 173/83 01/03/22 11:56 81 99 01/03/22 11:51 78 99 01/03/22 11:47 78 184/84 01/03/22 11:46 82 99 01/03/22 11:41 81 99 01/03/22 11:36 80 99 01/03/22 11:31 80 99 01/03/22 11:26 77 99 01/03/22 11:21 84 99 01/03/22 11:16 75 150/67 99 01/03/22 11:02 98.4 F 76 24 156/74 98 01/03/22 11:00 98 01/03/22 10:10 71 17 161/89 97 01/03/22 09:52 98.2 F 171/93 01/03/22 09:35 68 18 170/92 97 01/03/22 09:30 68 18 167/80 100 01/03/22 09:25 72 18 154/84 100 01/03/22 09:20 70 18 152/87 100 01/03/22 09:15 74 18 151/84 99 01/03/22 09:10 97.5 F L 77 18 161/75 99 Intake and Output 01/03/22 01/04/22 01/04/22 23:59 07:59 15:59 Output Total 1750 1000 Balance -1750 -1000 Output: Urine 1750 1000 Indwelling Catheter 1750 1000 Other: Total, Output Amount 500 150 - Labs Labs: Abnormal lab results 01/03/22 01/03/22 01/03/22 Range/Units 15:31 23:38 23:38 Hct 29.7 L (30.3-42.9) % Magnesium 3.80 H 4.70 H (1.7-2.3) mg/dL 01/04/22 Range/Units 05:58 Hct (30.3-42.9) % Magnesium 5.40 H (1.7-2.3) mg/dL
--- NOTE | 2022-01-04 10:22 | Progress Note ---
Assessment and Plan A: POD#1 s/p R. C/S at 36wks CHTN, currently normotensive on Labetalol and Mag Sulfate M.O. P: Continue with routine care with discontinuation of Mag Sulfate at 1100 and transfer to mother baby unit Subjective - Subjective Date of service: 01/04/22 Principal diagnosis: POD#1 s/p R. C/S at 36wks; CHTN; GDMA2; M.O. Interval history: POD#1 s/p R. C/S at 36wks. Patient is feeling well and has no complaints. She reports adequate pain control, decreasing lochia and +flatus. Patient reports: voiding normally, pain well controlled, flatus : doing well Objective - Vital Signs Latest vital signs: Vital Signs Temp Pulse Resp BP BP Pulse Ox Pulse Ox 01/04/22 10:20 74 99 01/04/22 10:15 73 99 01/04/22 10:10 82 99 01/04/22 10:05 77 99 01/04/22 10:04 78 131/62 01/04/22 10:03 79 131/62 01/04/22 10:00 75 99 01/04/22 09:55 71 99 01/04/22 09:50 76 99 01/04/22 09:48 98.8 F 76 18 134/69 99 01/04/22 09:46 75 94 01/04/22 09:45 69 96 01/04/22 09:40 70 97 01/04/22 09:35 84 99 01/04/22 09:30 80 99 01/04/22 09:25 76 131/62 98 01/04/22 09:20 76 99 01/04/22 09:15 76 98 01/04/22 09:10 77 98 01/04/22 09:05 72 98 01/04/22 09:00 74 99 01/04/22 08:55 74 99 01/04/22 08:50 81 98 01/04/22 08:45 77 99 01/04/22 08:40 78 99 01/04/22 08:35 82 99 01/04/22 08:30 80 99 97 01/04/22 08:25 85 148/79 100 01/04/22 08:20 80 99 01/04/22 08:15 73 99 01/04/22 08:10 70 98 01/04/22 08:05 71 97 01/04/22 08:00 77 98 01/04/22 07:55 83 99 01/04/22 07:50 89 99 01/04/22 07:45 82 98 01/04/22 07:40 75 99 01/04/22 07:35 74 99 01/04/22 07:30 82 99 01/04/22 07:25 84 134/69 99 01/04/22 07:20 76 99 01/04/22 07:15 84 99 01/04/22 07:10 72 99 01/04/22 07:05 71 97 01/04/22 07:00 72 98 01/04/22 06:55 83 99 01/04/22 06:50 78 99 01/04/22 06:45 77 99 01/04/22 06:44 98.2 F 19 01/04/22 06:40 83 98 01/04/22 06:35 83 99 01/04/22 06:30 79 99 01/04/22 06:25 80 99 01/04/22 06:20 88 98 01/04/22 06:15 79 99 01/04/22 06:10 81 98 01/04/22 06:05 89 99 01/04/22 06:03 80 159/74 01/04/22 06:00 83 99 01/04/22 05:55 81 98 01/04/22 05:50 71 97 01/04/22 05:45 72 98 01/04/22 05:40 76 99 01/04/22 05:35 74 97 01/04/22 05:30 74 97 01/04/22 05:25 73 97 01/04/22 05:20 75 98 01/04/22 05:18 79 166/77 01/04/22 05:15 79 96 01/04/22 05:11 77 94 01/04/22 05:10 83 95 01/04/22 05:06 75 94 01/04/22 05:05 84 95 01/04/22 05:00 71 97 01/04/22 04:55 72 98 01/04/22 04:50 68 98 01/04/22 04:45 76 96 01/04/22 04:40 90 96 01/04/22 04:35 72 98 01/04/22 04:33 88 141/73 02/22/22 04:30 73 99 01/04/22 04:25 72 99 01/04/22 04:20 73 97 01/04/22 04:15 77 97 01/04/22 04:10 74 97 01/04/22 04:05 71 97 01/04/22 04:00 72 99 01/04/22 03:55 73 96 01/04/22 03:50 74 96 01/04/22 03:48 75 134/63 01/04/22 03:45 78 98 01/04/22 03:40 79 98 01/04/22 03:35 74 98 01/04/22 03:30 86 98 01/04/22 03:25 72 99 01/04/22 03:20 79 99 01/04/22 03:15 90 98 01/04/22 03:10 81 98 01/04/22 03:05 81 99 01/04/22 03:03 80 135/62 01/04/22 03:00 90 97 01/04/22 02:55 79 97 01/04/22 02:53 87 93 01/04/22 02:50 88 98 01/04/22 02:45 71 96 01/04/22 02:40 75 98 01/04/22 02:35 76 97 01/04/22 02:30 76 97 01/04/22 02:25 75 97 01/04/22 02:20 71 97 01/04/22 02:18 86 122/58 01/04/22 02:15 75 97 01/04/22 02:12 84 91 01/04/22 02:10 69 99 01/04/22 02:06 78 92 01/04/22 02:05 75 98 01/04/22 02:00 78 98 01/04/22 01:55 78 98 01/04/22 01:50 81 98 01/04/22 01:45 77 98 01/04/22 01:40 79 98 01/04/22 01:35 82 98 0222 01:33 82 131/61 22 01:30 82 98 01/04/22 01:25 84 98 01/04/22 01:20 86 98 01/04/22 01:15 76 96 01/04/22 01:14 79 94 01/04/22 01:10 80 96 01/04/22 01:07 81 94 01/04/22 01:05 78 94 01/04/22 01:01 84 93 01/04/22 01:00 79 96 01/04/22 00:55 82 96 01/04/22 00:54 84 93 01/04/22 00:50 85 95 01/04/22 00:49 83 94 01/04/22 00:48 81 127/61 01/04/22 00:45 79 97 01/04/22 00:40 89 97 01/04/22 00:35 89 98 01/04/22 00:30 86 97 01/04/22 00:25 91 H 96 01/04/22 00:20 76 95 01/04/22 00:18 86 94 01/04/22 00:15 89 98 01/04/22 00:10 79 97 01/04/22 00:05 86 95 01/04/22 00:03 81 131/65 01/04/22 00:00 88 98 01/03/22 23:55 86 98 0222 23:50 83 98 0222 23:45 85 99 22 23:40 89 99 0222 23:37 98.4 F 19 01/03/22 23:35 91 H 98 022122 23:30 87 98 022122 23:25 82 98 022122 23:20 88 98 0222 23:18 84 149/74 022122 23:15 90 98 022122 23:10 89 98 022122 23:05 81 98 0222 23:00 87 99 022122 22:55 89 98 022122 22:50 89 98 022122 22:45 89 98 022122 22:40 89 98 022122 22:35 89 98 0221/22 22:33 89 136/72 0221/22 22:30 83 98 022122 22:25 82 98 022122 22:20 81 96 022122 22:15 98 H 97 022122 22:10 85 97 022122 22:05 87 97 0222 22:00 95 H 97 0222 21:55 91 H 99 022122 21:50 86 98 022122 21:48 90 143/67 022122 21:45 87 97 022122 21:40 89 98 0222 21:35 84 98 022122 21:30 94 H 98 0222 21:25 93 H 98 022122 21:20 99 H 98 0222 21:15 96 H 98 0222 21:10 96 H 98 0222 21:05 95 H 98 0222 21:03 94 H 155/77 0222 21:00 97 H 98 0222 20:55 95 H 98 022122 20:50 94 H 98 0222 20:45 98 H 98 0222 20:40 86 98 0222 20:35 90 97 022122 20:30 90 98 0222 20:25 101 H 97 022122 20:20 96 H 97 0222 20:18 87 143/68 0222 20:15 94 H 97 022122 20:10 88 97 022122 20:05 101 H 98 0222 20:00 91 H 97 0222 19:56 90 97 0222 19:51 94 H 98 0222 19:45 91 H 98 022122 19:40 93 H 98 022122 19:35 98 H 98 022122 19:33 94 H 139/71 0222 19:30 98 H 98 0221/22 19:25 96 H 98 022122 19:20 98 H 98 0221/22 19:15 86 98 022122 19:10 97.6 F 93 H 18 98 022122 19:05 94 H 98 0222 19:00 91 H 98 0221/22 18:58 98 0222 18:55 95 H 98 0221/22 18:50 91 H 97 0221/22 18:48 82 135/63 0221/22 18:45 91 H 97 0221/22 18:40 89 97 0222 18:39 89 135/62 0222 18:38 95 H 135/62 0222 18:35 92 H 97 0222 18:31 87 141/65 141/65 98 0222 18:30 91 H 98 22 18:27 86 144/72 0222 18:26 98.4 F 88 20 142/72 98 01/03/22 18:25 88 98 01/03/22 18:20 85 98 22 18:15 93 H 98 01/03/22 18:10 89 98 02 18:05 91 H 98 01/03/22 18:03 77 186/86 02 18:00 85 98 01/03/22 17:55 82 98 01/03/22 17:50 80 98 01/03/22 17:45 80 98 01/03/22 17:41 81 98 01/03/22 17:36 95 H 98 01/03/22 17:30 78 97 01/03/22 17:26 83 98 01/03/22 17:21 85 98 01/03/22 17:18 79 180/83 02 17:15 77 96 01/03/22 17:10 79 97 01/03/22 17:06 83 98 01/03/22 17:00 85 98 01/03/22 16:56 76 97 01/03/22 16:51 81 96 01/03/22 16:45 87 98 01/03/22 16:43 83 173/88 01/03/22 16:40 83 98 01/03/22 16:36 76 99 0222 16:33 77 148/75 0222 16:30 79 98 0222 16:25 85 98 22 16:21 84 97 0222 16:15 84 98 22 16:11 86 97 01/03/22 16:05 81 98 22 16:00 79 98 01/03/22 15:55 84 98 22 15:50 80 98 22 15:48 78 149/69 0222 15:46 82 98 0222 15:40 84 98 01/03/22 15:36 88 98 01/03/22 15:30 84 98 01/03/22 15:26 96 H 98 01/03/22 15:21 84 98 01/03/22 15:16 81 99 02 15:11 86 98 01/03/22 15:06 84 98 01/03/22 15:03 86 179/84 02 15:01 85 98 01/03/22 14:59 98.1 F 86 24 175/86 175/86 98 01/03/22 14:56 89 99 01/03/22 14:51 88 98 01/03/22 14:46 80 98 01/03/22 14:41 87 99 01/03/22 14:36 82 98 01/03/22 14:31 84 98 01/03/22 14:26 96 H 98 01/03/22 14:21 86 98 01/03/22 14:18 87 161/89 01/03/22 14:16 89 98 01/03/22 14:11 94 H 98 01/03/22 14:06 86 97 01/03/22 14:01 82 98 01/03/22 13:56 80 98 01/03/22 13:51 89 99 01/03/22 13:46 86 98 01/03/22 13:41 90 98 01/03/22 13:36 90 98 01/03/22 13:33 85 162/71 01/03/22 13:31 99 H 98 01/03/22 13:28 83 171/80 171/80 98 01/03/22 13:26 89 98 01/03/22 13:21 84 98 01/03/22 13:16 89 99 01/03/22 13:11 96 H 99 01/03/22 13:06 92 H 98 01/03/22 13:01 88 98 01/03/22 12:56 85 98 01/03/22 12:55 84 162/77 02 12:54 86 162/77 99 22 12:51 83 99 01/03/22 12:50 83 172/86 02 12:49 95 H 172/86 98 01/03/22 12:46 83 98 01/03/22 12:45 85 158/82 0222 12:44 82 158/82 98 02/21/22 12:41 79 98 01/03/22 12:39 78 180/88 01/03/22 12:38 78 180/88 01/03/22 12:36 76 98 01/03/22 12:31 82 96 01/03/22 12:26 77 99 01/03/22 12:21 84 98 01/03/22 12:16 78 96 01/03/22 12:11 77 98 01/03/22 12:05 76 99 01/03/22 12:01 98.2 F 81 16 173/83 98 01/03/22 11:59 77 173/83 01/03/22 11:56 81 99 01/03/22 11:51 78 99 01/03/22 11:47 78 184/84 01/03/22 11:46 82 99 01/03/22 11:41 81 99 01/03/22 11:36 80 99 01/03/22 11:31 80 99 01/03/22 11:26 77 99 01/03/22 11:21 84 99 01/03/22 11:16 75 150/67 99 01/03/22 11:02 98.4 F 76 24 156/74 98 01/03/22 11:00 98 Intake and Output 01/03/22 01/04/22 01/04/22 23:59 07:59 15:59 Output Total 1750 1000 Balance -1750 -1000 Output: Urine 1750 1000 Indwelling Catheter 1750 1000 Other: Total, Output Amount 500 150 - Labs Labs: Abnormal lab results 01/03/22 01/03/22 01/03/22 Range/Units 15:31 23:38 23:38 Hct 29.7 L (30.3-42.9) % Magnesium 3.80 H 4.70 H (1.7-2.3) mg/dL 01/04/22 Range/Units 05:58 Hct (30.3-42.9) % Magnesium 5.40 H (1.7-2.3) mg/dL
[2022-01-05] MEDS: oxyCODONE /ACETAMINOPHEN 5-325MG TAB PO PRN ×2 (03:33→12:12)
--- NOTE | 2022-01-05 08:45 | Progress Note ---
Assessment and Plan - Patient Problems (1) Status post repeat low transverse section Current Visit: Yes Status: Acute Plan to address problem: Continue routine PP orders Keep dressing clean and dry, remove on POD#2 after shower Anticipate d/c home in 24 hrs if stable (2) Chronic hypertension Current Visit: Yes Status: Acute Plan to address problem: Continue to monitor B/Ps Continue Labetalol as prescribed (3) Morbid obesity Current Visit: No Status: Chronic Subjective - Subjective Date of service: 01/05/22 Principal diagnosis: POD#2 s/p R. C/S at 36wks; CHTN; GDMA2; M.O. Interval history: 6y/o @ 36+4 weeks presents for a scheduled delivery. The patient's course is complicated by chronic hypertension, GDMA2 on metformin, polydramnios, morbid obesity, advanced maternal age. The patient has had 2 previous cesareans. She has received steroids during the in anticipation of a delivery. She is GBS and HSV II positive. She denies any recent prodrome. Delivered viable male infant via repeat C/S. Patient reports: appetite normal, voiding normally, pain well controlled, flatus, ambulating normally, no bowel movement : doing well, bottle feeding Objective - Vital Signs Latest vital signs: Vital Signs Temp Pulse Resp BP BP Pulse Ox Pulse Ox 01/05/22 04:33 96 01/05/22 04:21 98.2 F 68 20 141/70 96 01/05/22 03:33 98 01/05/22 00:08 98.2 F 82 20 151/86 98 01/04/22 22:30 98 01/04/22 21:40 81 150/80 01/04/22 21:30 18 98 01/04/22 19:00 98 01/04/22 15:17 98.3 F 73 19 129/63 98 01/04/22 12:50 98.6 F 84 20 134/75 98 98 01/04/22 11:25 74 140/68 01/04/22 10:45 77 99 01/04/22 10:40 74 98 01/04/22 10:35 71 98 01/04/22 10:30 69 98 01/04/22 10:25 71 125/61 99 01/04/22 10:20 74 99 01/04/22 10:15 73 99 01/04/22 10:10 82 99 01/04/22 10:05 77 99 01/04/22 10:04 78 131/62 01/04/22 10:03 79 131/62 01/04/22 10:00 75 99 01/04/22 09:55 71 99 01/04/22 09:50 76 99 01/04/22 09:48 98.8 F 76 18 134/69 99 01/04/22 09:46 75 94 01/04/22 09:45 69 96 01/04/22 09:40 70 97 01/04/22 09:35 84 99 01/04/22 09:30 80 99 01/04/22 09:25 76 131/62 98 01/04/22 09:20 76 99 01/04/22 09:15 76 98 01/04/22 09:10 77 98 01/04/22 09:05 72 98 01/04/22 09:00 74 99 01/04/22 08:55 74 99 01/04/22 08:50 81 98 Intake and Output 01/04/22 01/05/22 01/05/22 23:59 07:59 15:59 Intake Total 240 Balance 240 Intake: Oral 240 Other: Total, Intake Amount 240 # Voids Void 1 - Exam Breasts: Present: normal Cardiovascular: Present: Regular rate Lungs: Present: Normal air movement Abdomen: Present: soft, tenderness Uterus: Present: firm, fundal height below umbilicus (U-2) Extremities: Present: edema (BLE) Incision: Present: dressed (no shadow drainage or bleeding noted) - Labs Labs: Abnormal lab results 01/04/22 Range/Units 12:17 Magnesium 4.90 H (1.7-2.3) mg/dL
[2022-01-05] MEDS ORDERED: IBUPROFEN 600 MG TAB PO SCH (13:00)
[2022-01-05] MEDS: IBUPROFEN 800 MG TAB PO SCH ×2 (16:05→21:07)
[2022-01-06] MEDS: IBUPROFEN 800 MG TAB PO SCH ×3 (01:51→10:28)
[2022-01-06] MEDS: oxyCODONE /ACETAMINOPHEN 5-325MG TAB PO PRN (06:16)
--- NOTE | 2022-01-06 08:37 | Discharge Summary ---
Providers - Providers Date of Admission: 01/03/22 05:10 Date of discharge: 01/06/22 Attending physician: JASON MATOS Primary care physician: JASON MATOS Hospitalization Reason for admission: section Delivery: Procedure: repeat low transverse Episiotomy: none Laceration: none Incision: dry, intact (no drainage or bleeding noted) Other procedures: none complications: none Discharge diagnosis: delivery (36.4 week gestation) [place] baby: male Hospital course: 36y/o @ 36+4 weeks presents for a scheduled delivery. The patient's course is complicated by chronic hypertension, GDMA2 on metformin, polydramnios, morbid obesity, advanced maternal age. The patient has had 2 previous cesareans. She has received steroids during the in anticipation of a delivery. She is GBS and HSV II positive. She denies any recent prodrome. Delivered viable male infant via repeat C/S. course has been uneventful and met d/c criteria on POD#3. Condition at discharge: Stable Disposition: 01 HOME / SELF CARE / HOMELESS - Discharge Diagnoses (1) Status post repeat low transverse section Status: Acute (2) Chronic hypertension Status: Acute (3) Morbid obesity Status: Chronic Plan - Discharge Medications Prescriptions: labetaloL [Labetalol 100mg TAB] 100 mg PO BID 14 Days #28 tablet labetaloL [Labetalol 200mg TAB] 200 mg PO BID 14 Days #28 tablet Ibuprofen [Motrin 800 MG tab] 800 mg PO Q8HR 7 Days #21 tablet - Provider Discharge Summary Activity: routine, no sex for 6 weeks, no heavy lifting 4 weeks, no strenuous exercise Diet: other (Iron rich diet) Instructions: routine Additional instructions: [] Smoking cessation referral if applicable(refer to patient education folder for contact #) [] Refer to [facility] Booklet Call your doctor immediately for: * Fever > 100.5 * Heavy vaginal bleeding ( >1 pad per hour) * Severe persistent headache * Shortness of breath * Reddened, hot, painful area to leg or breast * Drainage or odor from incision. * Keep incision clean and dry at all times and follow doctor's instructions regarding bathing/showering * Follow-up at office in 7 days for B/P check - Follow up plan Follow up: JASON MATOS MD [Primary Care Provider] - 7 Days
[2022-01-06 18:18] VITALS: BP 134/52
== END 2022-01-06 17:10 | disposition home or self-care (01) | DRG 765 ==
LOC: APU 05:10 → LD 11:15 → OB 01-04 12:11
PROVIDERS: ADMIT Obstetrics & Gynecology; ATTEND Obstetrics & Gynecology
PROC: 10D00Z1 Extraction of Products of Conception, Low, Open Approach (ICD-10-PCS; principal; 2022-01-03)
DX: O24.429 Gestational diabetes mellitus in childbirth, unspecified control (principal); O98.32 Other infections with a predominantly sexual mode of transmission complicating childbirth; O10.92 Unspecified pre-existing hypertension complicating childbirth; O34.211 Maternal care for low transverse scar from previous cesarean delivery; Z3A.36 36 weeks gestation of pregnancy; Z37.0 Single live birth; Z20.822 Contact with and (suspected) exposure to COVID-19; Z87.891 Personal history of nicotine dependence; A60.00 Herpesviral infection of urogenital system, unspecified; O99.824 Streptococcus B carrier state complicating childbirth; O99.214 Obesity complicating childbirth; Z79.84 Long term (current) use of oral hypoglycemic drugs; Z79.82 Long term (current) use of aspirin; O99.62 Diseases of the digestive system complicating childbirth; K66.0 Peritoneal adhesions (postprocedural) (postinfection)
CPT/HCPCS: 36415; 59025; 80048; 83735; 85014; 85018; 85025; 85027; 86592; 86850; 86900; 86901; G0378; J3490; J7121; J0360; J0690; J1100; J1885; J2370; J2405; J2765; J3475; J7120; U0003